=== PATIENT | female | born 1955 | race Caucasian/White ===

== ENCOUNTER → 2017-06-19 | Outpatient (CLI) | payer BC ==
[~2017-06-19] MED LIST: ASPIRIN81 MG PO; AZITHROMYCIN250 MG PO; CEFDINIR300 MG PO; CIPRO500 MG PO; CLARITIN10 MG PO; ENBREL50 MG/1 M1 PO; FENTANYL CITRATE/PF 100MCG/2 ML INJ ONE; GLIMEPIRIDE2 MG PO; HYDROCODONE-CH473 ML PO; IPRAT-ALBUT 0.5-3 ML INH; LEFLUNOMIDE10 MG PO; LISINOPRIL-HCT1 EAC1 PO; MEDROL4 MG/DOSE-; METFORMIN HCL500 MG PO; MIDAZOLAM HCL 2 MG/2 ML VIAL ONE; MIRAPEX1 MG PO; MUCINEX D ER T1 EAC1 PO; PREDNISONE10 MG PO; PROAIR HFA INH8.5 GM PO; SODIUM CHLORIDE 0.9% 250ML 250 ML ONE
[2017-06-19 09:37] LABS: INR 1.1; PROTHROMBIN TIME 13.4 seconds (11.9-14.5)
[2017-06-19 09:38] LABS: PARTIAL THROMBOPLASTIN TIME 25.1 seconds (23.8-35.5)
--- NOTE | 2017-06-19 12:23 | Diagnostic Imaging Report ---
PROCEDURE:CT GUIDED NEEDLE PLACEMENT COMPARISON:CT scan of the chest performed at an outside facility 06/06/2017. Preprocedure diagnosis: Right pleural-chest wall mass Post procedure diagnosis: Right pleural-chest wall cystic lesion Ping Pong Table Assembler: Rommel Fernandez M.D. Sedation/anesthesia: Versed 1 mg intravenous, fentanyl 50 mcg intravenous. The patient's heart rate and pulse oximetry were continuously monitored by the interventional radiology nurse. Blood pressure was monitored at 5 minute intervals. Additional medications: Lidocaine 1% for local anesthesia Estimated blood loss: Less than 5 cc Blood products administered: None Specimens obtained: 70 cc bloody, debris laden fluid Implants/grafts: None Condition at completion of procedure: Stable Disposition: Radiology holding area Complications: None Procedure in detail: Informed consent for the procedure was obtained from the patient and documented in the medical record. The patient was placed in the supine position on the CT couch. A marker grid was placed over the anterior chest and limited CT acquisition was performed. A suitable percutaneous approach the right anterior pleural-chest wall lesion was identified and the overlying skin was prepped and draped in standard sterile fashion. 1% lidocaine was infiltrated into the skin and subcutaneous tissues for local anesthesia. Then under intermittent CT guidance, a 16 gauge needle guide was advanced into the periphery of the lesion. A single fine needle aspiration specimen was obtained. Subsequently, aspiration through the needle guide yielded approximately 70 cc of bloody, debris laden fluid containing thick, gelatinous material. Specimens were submitted to on-site cytopathology personnel and intralesional location was confirmed. Approximately 40 cc of fluid was submitted for cytologic and pathologic analysis. Approximately 30 cc of fluid was placed in a specimen container for microbiologic analysis. At the conclusion of sampling the guide was removed and a sterile dressing was applied. The patient tolerated the procedure well without immediate complication. CONCLUSION: Successful CT-guided aspiration of a complex cystic lesion along the right anterior pleura/chest wall without immediate complication. Specimens were submitted in formalin for pathologic analysis, as well as directly to the microbiology lab for Gram stain, aerobic, anaerobic, and fungal cultures. Dictated by: Rommel Fernandez M.D. on 06/19/2017 at 12:22 Electronically approved by: Rommel Fernandez M.D. on 06/19/2017 at 12:22
== END ==
LOC: CT 08:03
PROVIDERS: ATTEND Internal Medicine Critical Care Medicine
DX: R22.2 Localized swelling, mass and lump, trunk (principal); J45.909 Unspecified asthma, uncomplicated; G47.33 Obstructive sleep apnea (adult) (pediatric); L40.50 Arthropathic psoriasis, unspecified; M06.9 Rheumatoid arthritis, unspecified
CPT/HCPCS: 10022; 36415; 77012; 85049; 85610; 85730; 87071; 87075; 87102; 87205; 87206; 88172; 88173; 88305; J2250; J7050; 88112

== ENCOUNTER → 2017-07-03 | Outpatient (CLI) | payer BC ==
[~2017-07-03] MED LIST changes: -FENTANYL CITRATE/PF 100MCG/2 ML INJ ONE; -MIDAZOLAM HCL 2 MG/2 ML VIAL ONE; -SODIUM CHLORIDE 0.9% 250ML 250 ML ONE
--- NOTE | 2017-07-03 16:35 | Diagnostic Imaging Report ---
Ventilation /Perfusion Lung Study with Quantitation Reason for exam: 62 F with mass associated with right 4th rib anteriorly; pre-operative evaluation Report: Xenon-133 gas 12 mCi was administered via in relation. Dynamic images of the lungs in the posterior projection were obtained through single breath, equilibrium and washout phases. Distribution of tracer activity is slightly irregular throughout the lungs. No ventilatory defects are seen. Washout is diffusely delayed without air trapping. Following intravenous administration of Tc-99m MAA 6.2 mCi, perfusion images of the lungs were obtained in multiple projections. Distribution of tracer appears physiologic throughout the lungs. No segmental perfusion defects of any size are seen. No space occupying mass is seen. The cardiomediastinal silhouette is unremarkable. Quantitation was performed using geometric means of the anterior and posterior perfusion images: Total lung volumes: Left lung 49% and right lung 51%. Differential contributions based on three lung zones per lung: Upper zone of left lung 14%, middle zone of left lung 21%, lower zone of left lung 15%. Upper zone of right lung 15%, middle zone of right lung 24%, lower third of right lung 13%. Impression: 1. Quantitation of lung function is as given above. The quantitation shows a normal differential between the lungs. 2. Scan finding represent a VERY LOW probability of acute pulmonary embolic disease based on the PIOPED II criteria. 3. Scan evidence of obstructive lung disease. Signed by: Dr. Demetra James M.D. on 07/03/2017 4:32 PM
== END ==
LOC: NM 09:27
PROVIDERS: ATTEND Internal Medicine Critical Care Medicine
DX: L40.50 Arthropathic psoriasis, unspecified (principal); G47.33 Obstructive sleep apnea (adult) (pediatric)
CPT/HCPCS: 78598; A9540; A9558

== ENCOUNTER → 2017-07-09 | Outpatient (CLI) | payer BC ==
--- NOTE | 2017-07-10 16:00 | Pulmonary Function Test ---
DATE OF STUDY: July 09, 2017 SPIROMETRY: Spirometry demonstrates evidence of moderate restriction as noted by decreased FEV1 of 1.80 liters or 62% predicted, FVC of 2.37 liters or 63% predicted and normal FEV1 over FVC ratio. Flow volume loop demonstrates narrow effort suggestive of restriction. LUNG VOLUMES: Lung volumes as measured by nitrogen washout method demonstrated decreased total lung capacity of 4.01 liters or 68% predicted, which is consistent with restriction. Effect of obesity is suggested due to decreased ERV of 28% predicted. DIFFUSION: Diffusion capacity was moderately decreased at 13.17 mL per mmHg per minute or 51% predicted. Of note, diffusion effort was slightly decreased which may falsely decrease the measured result of this test. Six minute walk distance. Patient ambulated 450 feet over 6 minutes without stopping. She did not use oxygen but she did use her rolling walker assist device with oxygen saturation maintaining 98% to 97%. SUMMARY: Moderate restriction defect, moderate diffusion defect. This is most often seen in alveolar interstitial lung disease, but clinical correlation is recommended. Decreased 6 minute walk distance of 450 meters was noted. Job#: [id number]
== END ==
LOC: RESP 07:55
PROVIDERS: ATTEND Internal Medicine Critical Care Medicine
DX: J45.909 Unspecified asthma, uncomplicated (principal); R22.2 Localized swelling, mass and lump, trunk; G47.33 Obstructive sleep apnea (adult) (pediatric); L40.50 Arthropathic psoriasis, unspecified; M06.9 Rheumatoid arthritis, unspecified
CPT/HCPCS: 94010; 94727; 94729

== ENCOUNTER 2018-11-18 21:31 | Emergency (ER) | payer BC ==
[~2018-11-18] VITALS: Ht 172.7 cm; Wt 124.7 kg
--- OUTSIDE RECORDS SUMMARY | 2018-11-18 21:34 | XMS REPORT | Encounter Summary ---
Author Organization Unknown Address [address] [place] [address] Phone [phone] Reason for Visit Medical Complaint Instructions 1. Influenza-like symptoms rapid flu (A+B) Tamiflu 75 mg capsule benzonatate 200 mg capsule patient follow up phone call 2. Exposure to Influenzavirus 3. Pain in throat sore throat: care instructions rapid strep group A, throat 4. Essential hypertension high blood pressure: care instructions 5. Hyperlipidemia high cholesterol: care instructions 6. Type 2 diabetes mellitus type 2 diabetes: care instructions 7. Body mass index 40+ - severely obese 8. Noncompliance with medication regimen Discussion Note Pt is in NAD; Verbalizes understanding of all instructions with no questions at this time. Plan of Care Patient Instructions Before using any of these medications check with your PCP for approval: Take fluticasone as needed for congestion. Clear one spray in each nostril twice a day. Take a warm, steamy shower, blow your nose thereafter, and spray in each nostril. Tilt your head up for about 10 seconds and breath through your mouth. Do not sniff or snort the medication in or else the medication will go to your throat and not be absorbed appropriately. Take Benzonatate for cough as directed. 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 Alternate with Ibuprofen and acetaminophen every 4hrs as needed for sore throat/pain/fever/headache. Proper hydration and rest. Return to work/school if free of fever for 24-hrs. Do not share any utensils/cups, no kissing, recommend hand washing after coughing/sneezing/blowing nose and cover face when you do so. Take medications as prescribed. Return to clinic or follow up with your PCP within 2-3 days if symptoms worsen as discussed. Recommend monitor BP and blood sugars at home and document, bring BP and blood sugar log to PCP for review. Recommend follow a low sodium/fat and carb diet and exercise 30-45 mins/d 3-4 days a week. In case of an emergency call 911 or go to nearest ER. Reminders Provider Appointments None recorded. Lab Rapid Flu (A+B) 06/01/2017 [facility] Rapid Strep Group a, Throat 06/01/2017 [facility] Referral None recorded. Procedures None recorded. Surgeries None recorded. Imaging None recorded. Medications Name Start Date amlodipine 10 mg tablet TAKE 1 TABLET BY MOUTH EVERY DAY benzonatate 200 mg capsule Take 1 capsule 3 times a day by oral route as needed. Cosentyx Pen 150 mg/mL subcutaneous levalbuterol 0.63 mg/3 mL solution for nebulization Inhale 3 mL every 8 hours by nebulization route. lovastatin 20 mg tablet metformin 500 mg tablet metoprolol succinate ER 100 mg tablet,extended release 24 hr TAKE 1 TABLET BY MOUTH ONCE A DAY olmesartan 40 mg-hydrochlorothiazide 12.5 mg tablet pramipexole 1 mg tablet TAKE 1 TABLET BY MOUTH 3 TIMES A DAY Symbicort 160 mcg-4.5 mcg/actuation HFA aerosol inhaler TAKE 2 PUFFS BY MOUTH TWICE A DAY Tamiflu 75 mg capsule Take 1 capsule twice a day by oral route as directed for 5 days. Medications Administered None recorded. Vitals Height Weight BMI Blood Pressure 5 ft 8 in 288 lbs 43.8 kg/m2 132/90 mm[Hg] Lab Results Date Name Specimen Result Interpretation Description Value Range Status Address Rapid Strep Group a, Throat Result negative [facility]: [address] [place] [address] Swab Location Left and Right tonsillar pillars [facility]: [address] [place] [address] Rapid Flu (A+B) Influenza a negative [facility]: [address] [place] [address] Influenza B negative [facility]: [address] [place] [address] Allergies Code Code System Name Reaction Severity Status Onset NKDA Problems None recorded. Procedures Date Name Performed by Hysterectomy Information not available Vaccine List Vaccine Type influenza, unspecified formulation 01/22/2016 Social History Smoking Status Never Smoker Past Encounters 06/01/2017 Influenza-like Symptoms; Exposure to Influenzavirus; Pain in Throat; Essential Hypertension; Hyperlipidemia; Type 2 Diabetes Mellitus; Body Mass Index 40+ - Severely Obese; Noncompliance with Medication Regimen Dotty Vogt, ANA-C: [address] [facility], [place] [address], Ph. History of Present Illness Enivgsv-Ekahr-Tjf Reported By: Patient HPI: Quality: symptoms worse during the day. Duration: 1 days. Severity: subjective temperature. 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 Pt reports not using symbicort BID as instructed. She denies SOB, chest pain or wheezing. Associated Symptoms: no headache, no muscle aches, no rash, no lethargy, fever/chills, cough, nasal passage blockage (stuffiness), nasal discharge; sore throat and chest congestion. Modifying Factors ; symbicort inhaler and levalbuterol neb with mild relief Review of Systems:ROS as noted in the HPI Review of Systems Basic Reported By: Patient Physical Exam Adult Basic, Adult Female Complete Reported By: Patient Constitutional: General Appearance: obese. Level of Distress: NAD. Ambulation: ambulation with walker Psychiatric: Mental Status: active and alert. Orientation: to time, to place, to person Jgb-Ryzv-Hwvzp-Throat: Ears: no lesions on external ear, no outer ear tenderness, EACs clear, TMs clear. Hearing: no hearing loss. Nose: no lesions on external nose, nares patent, no septal deviation, nasal passages clear, no sinus tenderness, nasal discharge--rhinorrhea. Lips, Teeth, and Gums: no mouth or lip ulcers, no bleeding gums, normal dentition. Oropharynx: moist mucous membranes, no erythema, no exudates, tonsils not enlarged Neck: Lymph Nodes: no cervical LAD Lungs: Respiratory effort: no dyspnea, no tachypnea, no use of accessory muscles, no intercostal retractions. Auscultation: breath sounds normal Cardiovascular: Heart Auscultation: RRR, no murmurs Neurologic: Gait and Station: normal gait, normal station
--- OUTSIDE RECORDS SUMMARY | 2018-11-18 21:34 | XMS REPORT | Clinical Summary ---
Author Author RICHELLE [facility] Address Unknown Phone Unavailable Care Team Providers Care Sprayer Operator Name Role Phone Pcp, No PCP Unavailable Allergies No Known Allergies Medications End Date Status Medication Sig Dispensed Refills Start Date Active metFORMIN (GLUCOPHAGE) Take 1,000 mg 0 1000 MG tablet by mouth 2 (two) times daily with breakfast and dinner. Active metoprolol (TOPROL-XL) Take 200 mg 0 200 MG 24 hr tablet by mouth daily. Active olmesartan (BENICAR) 40 Take 40 mg by 0 MG tablet mouth daily. Active lovastatin (MEVACOR) 20 Take 20 mg by 0 MG tablet mouth nightly. Active dapagliflozin (FARXIGA) 5 Take 5 mg by 0 mg tablet mouth daily. Active apremilast (OTEZLA) 30 mg Take 30 mg by 0 Tab mouth 2 (two) times daily. Active budesonide-formoterol Inhale 2 0 (SYMBICORT) 160-4.5 puffs by mcg/actuation inhaler mouth via inhaler 2 (two) times daily. Active pramipexole (MIRAPEX) 1 Take 1 mg by 0 MG tablet mouth 3 (three) times daily. Active ondansetron (ZOFRAN) 2 Inject 2 mLs 0 mg/mL Soln (4 mg total) 8 intravenously every 8 (eight) hours as needed. 10/13/2018 nystatin (MYCOSTATIN) Apply 15 g 0 100,000 unit/gram powder topically 2 8 (two) times daily. 10/13/2018 gabapentin (NEURONTIN) Take 1 0 100 MG capsule capsule (100 8 mg total) by mouth 3 (three) times daily. 10/13/2018 senna-docusate (SENOKOT Take 2 0 S) 8.6-50 mg per tablet tablets by 8 mouth nightly. 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 Physical deconditioning 10/08/2017 History of COPD 10/08/2017 History of sleep apnea 10/08/2017 Thrombocytopenia 10/08/2017 Acute blood loss anemia 10/06/2017 Acute postoperative pain 10/06/2017 Obesity (BMI 30-39.9) 10/06/2017 Type 2 diabetes mellitus with hyperglycemia, without long-term current use 10/06/2017 of insulin Chest wall mass 10/05/2017 Respiratory insufficiency Hypertension, unspecified type Social History Date Tobacco Use Types Packs/Day Years Used Never Smoker Smokeless Tobacco: Never Used Alcohol Use Drinks/Week oz/Week Comments No Sex Assigned at Date Recorded Not on file Industry Job Start Date Occupation Not on file Not on file Not on file Travel End Travel History Travel Start No recent travel history available. Last Filed Vital Signs Not on file Plan of Treatment Not on file Procedures Comments Procedure Name Priority Date/Time Associated Diagnosis INTRAOPERATIVE PATH 08/02/2018 REPORT - SCAN 10:00 AM CDT INTRAOPERATIVE PATH 08/02/2018 REPORT - SCAN 10:00 AM CDT after 11/17/2017 Results * INTRAOPERATIVE PATH REPORT - SCAN (08/02/2018 10:00 AM CDT) Only the most recent of 2 results within the time period is included. Narrative Performed At after 11/17/2017 Insurance Payer Benefit Subscriber ID Type Phone Address Plan / Group BLUE CROSS/BLUE SHIELD BCBS OS xxxxxxxxxxxx PPO [phone] [address] POS/PPO/[place] [address] O Advance Directives For more information, please contact: [facility] [address] [place] [address] Date Inactivated Comments Code Status Date Activated 10/13/2017 2:14 PM Full Code 10/05/2017 12:37 PM This code status was determined by: Patient
--- OUTSIDE RECORDS SUMMARY | 2018-11-18 21:34 | XMS REPORT | Continuity of Care Document ---
Author Author [employer] Address Unknown Phone Unavailable Care Team Providers Care Sales Marketing Manager Name Role Phone [facility] Unavailable Unavailable Problems Problem Status Onset Date Classification Date Reported Comments Source Influenza-like symptoms 06/01/2017 Diagnosis 06/01/2017 [facility] Exposure to Influenzavirus 06/01/2017 Diagnosis 06/01/2017 [facility] Pain in throat 06/01/2017 Diagnosis 06/01/2017 [facility] Essential hypertension 06/01/2017 Diagnosis 06/01/2017 [facility] Hyperlipidemia 06/01/2017 Diagnosis 06/01/2017 [facility] Type 2 diabetes mellitus 06/01/2017 Diagnosis 06/01/2017 [facility] Body mass index 40+ - severely obese 06/01/2017 Diagnosis 06/01/2017 [facility] Noncompliance with medication regimen 06/01/2017 Diagnosis 06/01/2017 [facility] Acute exacerbation of chronic obstructive airways disease 10/31/2016 Diagnosis 10/31/2016 [facility] Sore throat symptom 10/31/2016 Diagnosis 10/31/2016 [facility] Medications Medication Details Route Status Patient Instructions Ordering Provider Order Date Source Amlodipine 10 MG Oral Tablet amlodipine 10 mg tablet TAKE 1 TABLET BY MOUTH EVERY DAY Active [facility] benzonatate 200 MG Oral Capsule benzonatate 200 mg capsule Take 1 capsule 3 times a day by oral route as needed. Active [facility] doxycycline hyclate 100 MG Oral Capsule doxycycline hyclate 100 mg capsule Take 1 capsule twice a day by oral route as directed for 10 days. Active [facility] Fluticasone propionate 0.05 MG/ACTUAT Metered Dose Nasal [place] fluticasone 50 mcg/actuation nasal spray,suspension [place] 1 spray every day by intranasal route as needed for 14 days. Active [facility] Ketoprofen 75 MG Oral Capsule ketoprofen 75 mg capsule TAKE ONE CAPSULE BY MOUTH 3 TIMES A DAY NEEDED Active [facility] Lidocaine Hydrochloride 20 MG/ML Mucous Membrane Topical Solution Lidocaine Viscous 2 % mucosal solution Take 15 mL every 3 hours by oral route as needed. Active [facility] Lovastatin 20 MG Oral Tablet lovastatin 20 mg tablet Active [facility] Metformin hydrochloride 500 MG Oral Tablet metformin 500 mg tablet Active [facility] 24 HR metoprolol succinate 100 MG Extended Release Oral Tablet metoprolol succinate ER 100 mg tablet,extended release 24 hr TAKE 1 TABLET BY MOUTH ONCE A DAY Active [facility] Olmesartan medoxomil 40 MG Oral Tablet olmesartan 40 mg tablet TAKE 1 TABLET BY MOUTH EVERY DAY Active [facility] 1 ML abatacept 125 MG/ML Prefilled Syringe [Orencia] Orencia 125 mg/mL subcutaneous syringe Active [facility] Pramipexole dihydrochloride 1 MG Oral Tablet pramipexole 1 mg tablet TAKE 1 TABLET BY MOUTH 3 TIMES A DAY Active [facility] Sulfasalazine 500 MG Oral Tablet sulfasalazine 500 mg tablet Active [facility] Budesonide 0.16 MG/ACTUAT / formoterol fumarate 0.0045 MG/ACTUAT Metered Dose Inhaler Symbicort 160 mcg-4.5 mcg/actuation HFA aerosol inhaler TAKE 2 PUFFS BY MOUTH TWICE A DAY Active [facility] 1 ML secukinumab 150 MG/ML Auto-Injector [Cosentyx] Cosentyx Pen 150 mg/mL subcutaneous Active [facility] Levalbuterol 0.21 MG/ML Inhalant Solution levalbuterol 0.63 mg/3 mL solution for nebulization Inhale 3 mL every 8 hours by nebulization route. Active [facility] Hydrochlorothiazide 12.5 MG / Olmesartan medoxomil 40 MG Oral Tablet olmesartan 40 mg-hydrochlorothiazide 12.5 mg tablet Active [facility] Oseltamivir 75 MG Oral Capsule [Tamiflu] Tamiflu 75 mg capsule Take 1 capsule twice a day by oral route as directed for 5 days. Active [facility] Allergies, Adverse Reactions, Alerts No Known Medication Allergies Immunizations Immunization Date Given Site Status Last Updated Comments Source influenza, unspecified formulation 01/22/2016 completed [facility] Results Order Name Results Value Reference Range Date Interpretation Comments Source RESULT negative 06/01/2017 [facility] SWAB LOCATION Left and Right tonsillar pillars 06/01/2017 [facility] Influenza A negative 06/01/2017 [facility] Influenza B negative 06/01/2017 [facility] RESULT negative 10/31/2016 [facility] SWAB LOCATION Left and Right tonsillar pillars 10/31/2016 [facility] Pathology Reports No Data Provided for This Section Diagnostic Reports No Data Provided for This Section Consultation Notes No Data Provided for This Section Discharge Summaries No Data Provided for This Section History and Physicals No Data Provided for This Section Vital Signs Vital Sign Value Date Comments Source Diastolic (mm Hg) 90 06/01/2017 [facility] Height 68 06/01/2017 [facility] Systolic (mm Hg) 132 06/01/2017 [facility] Weight 288 06/01/2017 [facility] Diastolic (mm Hg) 90 10/31/2016 [facility] Height 68 10/31/2016 [facility] Systolic (mm Hg) 136 10/31/2016 [facility] Weight 290 10/31/2016 [facility] Encounters Location Location Details Encounter Type Encounter Number Reason For Visit Attending Provider ADM Date DC Date Status Source [place] - [facility] - [id number] ANA Meyer-C: [address] [place] [address], Ph. [id number] Dotty Torie 10/31/2016 [facility] [place] - [facility] - [id number] MaradiagaP-C: [address] [place] [address], Ph. [id number] Dottybaljit Vogt 06/01/2017 [facility] Procedures Procedure Code Date Perfomer Comments Source Hysterectomy [facility] Assessment and Plan No Data Provided for This Section Plan of Care No Data Provided for This Section Social History Social History Date Source Smoking Status Never Smoker 10/31/2016 [facility] Family History No Data Provided for This Section Advance Directives No Data Provided for This Section Functional Status No Data Provided for This Section
--- OUTSIDE RECORDS SUMMARY | 2018-11-18 21:34 | XMS REPORT | Encounter Summary ---
Author Organization Unknown Address [address] [place] [id number] Phone [phone] Reason for Visit Medical Complaint Instructions 1. Acute exacerbation of chronic obstructive airways disease fluticasone 50 mcg/actuation nasal spray,suspension benzonatate 200 mg capsule doxycycline hyclate 100 mg capsule 2. Sore throat symptom sore throat: care instructions Lidocaine Viscous 2 % mucosal solution rapid strep group A, throat Discussion Note Pt is in NAD; Verbalizes understanding of all instructions with no questions at this time. Plan of Care Patient Instructions start fluticasone as needed for nasal congestion and runny nose. [place] one spray in each nostril twice a day. Take a warm, steamy shower, blow your nose thereafter, and spray in each nostril. Tilt your head up for about 10 seconds and breath through your mouth. Do not sniff or snort the medication in or else the medication will go to your throat and not be absorbed appropriately. Continue ProAir inhaler 2 puffs every 4-6 hrs as needed for shortness of breath/wheezing. Continue Symbicort as directed by your backbreaker. Start Benzonatate for cough as directed. Take antibiotics as directed. Gargle and spit viscous lidocaine as needed for sore throat as directed. Alternate with Ibuprofen and acetaminophen every 4hrs as needed for pain/fever/headache. Proper hydration and rest. Do not share any utensils/cups, no kissing, recommend hand washing after coughing/sneezing/blowing nose and cover face when you do so. Take medications as prescribed and follow up with a PCP and backbreaker within 2-3 if symptoms worsen as discussed.In case of emergency: worsening chest tightness, chest pain, worsening shortness of breath or difficulty breathing call 911 or go to nearest ER. Reminders Provider Appointments None recorded. Lab Rapid Strep Group a, Throat 10/31/2016 [facility] Referral None recorded. Procedures None recorded. Surgeries None recorded. Imaging None recorded. Medications Name Start Date amlodipine 10 mg tablet TAKE 1 TABLET BY MOUTH EVERY DAY benzonatate 200 mg capsule Take 1 capsule 3 times a day by oral route as needed for 7 days. doxycycline hyclate 100 mg capsule Take 1 capsule twice a day by oral route as directed for 10 days. fluticasone 50 mcg/actuation nasal spray,suspension [place] 1 spray every day by intranasal route as needed for 14 days. ketoprofen 75 mg capsule TAKE ONE CAPSULE BY MOUTH 3 TIMES A DAY NEEDED Lidocaine Viscous 2 % mucosal solution Take 15 mL every 3 hours by oral route as needed. lovastatin 20 mg tablet metformin 500 mg tablet metoprolol succinate ER 100 mg tablet,extended release 24 hr TAKE 1 TABLET BY MOUTH EVERY DAY olmesartan 40 mg tablet TAKE 1 TABLET BY MOUTH EVERY DAY Orencia 125 mg/mL subcutaneous syringe pramipexole 1 mg tablet TAKE 1 TABLET BY MOUTH 3 TIMES A DAY sulfasalazine 500 mg tablet Symbicort 160 mcg-4.5 mcg/actuation HFA aerosol inhaler TAKE 2 PUFFS BY MOUTH TWICE A DAY Medications Administered None recorded. Vitals Height Weight BMI Blood Pressure 5 ft 8 in 290 lbs 44.1 kg/m2 136/90 mm[Hg] Lab Results Date Name Specimen Result Interpretation Description Value Range Status Address Rapid Strep Group a, Throat Result negative [facility]: [address] [place] [address] Swab Location Left and Right tonsillar pillars [facility]: [address] [place] [address] Allergies Code Code System Name Reaction Severity Onset NKDA Problems None recorded. Procedures Date Name Performed by Hysterectomy Information not available Vaccine List Vaccine Type influenza, unspecified formulation 01/22/2016 Social History Smoking Status Never Smoker Past Encounters 10/31/2016 Acute Exacerbation of Chronic Obstructive Airways Disease; Sore Throat Symptom [facility] [employer]: [address] [place] [address], Ph. History of Present Illness Cough Reported By: Patient HPI: Location: chest. Quality: productive cough, sore throat, colored phlegm, congested. Duration: 1 days. Severity: moderate. Onset/Timing: sudden. Context: no sick contacts, no foreign travel, non-smoker, COPD; follows with pulmonary medicine. Modifying factors: ; symbicort and proair inhalers. Associated Symptoms: no wheezing, no sweats, no significant weight gain, no significant weight loss, no morning cough, no sore throat, no vomiting, no diarrhea, no rash, no nausea, no fever/chills, no muscle aches, no headache, yellow-green, thick sputum, shortness of breath Review of Systems:ROS as noted in the HPI Review of Systems Basic Reported By: Patient Physical Exam Adult Basic, Adult Female Complete Reported By: Patient Constitutional: General Appearance: healthy-appearing, well-nourished, well-developed. Level of Distress: NAD. Ambulation: ambulating normally Psychiatric: Mental Status: active and alert Eyes: Lids and Conjunctivae: non-injected, no discharge, no pallor Hry-Exfn-Crunv-Throat: Ears: no lesions on external ear, no outer ear tenderness, EACs clear, TMs clear. Nose: no lesions on external nose, nares patent, no septal deviation, nasal passages clear, no sinus tenderness, post nasal drip. Lips, Teeth, and Gums: no mouth or lip ulcers, no bleeding gums, normal dentition. Oropharynx: moist mucous membranes, no erythema, no exudates, tonsils not enlarged Neck: Lymph Nodes: no cervical LAD Lungs: Respiratory effort: no dyspnea, no tachypnea, no use of accessory muscles, no intercostal retractions. Auscultation: expiratory wheezing, wet rales/crackles Cardiovascular: Heart Auscultation: RRR, no murmurs Neurologic: Gait and Station: normal gait, normal station
--- OUTSIDE RECORDS SUMMARY | 2018-11-18 21:35 | XMS REPORT ---
Author Author [facility] Address Unknown Phone Unavailable Care Team Providers Care Car Shakeout Operator Name Role Phone ALYX GREY Unavailable Unavailable Georgina LAM Unavailable Unavailable Problems This patient has no known problems. Allergies, Adverse Reactions, Alerts This patient has no known allergies or adverse reactions. Medications This patient has no known medications. Results Test Description Test Time Test Comments Text Results Atomic Results Result Comments TISSUE EXAM 2017-12-11 16:37:00 Surgical Pathology Report Case: [id number] Authorizing Provider: Kathrin Grey, Collected: 10/05/2017 1821 Ordering Location: [facility] Received: 10/08/2017 0757 PERIOPERATIVE SERVICES Pathologist: Gaby Griffin MD Specimens: A) - Rib, Right, sixth rib B) - Mass, right chest wall mass C) - Mass, RIGHT LUNG MASS D) - Rib, Right, RIGHT THIRD RIB BONE THE AMENDMENT WAS ISSUED TO CORRECT THE ANATOMIC LOCATION OF TUMOR IN PART C, AFTER QA REVIEW. THE ORIGINAL DIAGNOSIS REMAINS UNCHANGED. A. RIGHT RIB, 6TH RIB, EXCISION: - BONE FRAGMENTS, NEGATIVE FOR MALIGNANCYB. RIGHT CHEST WALL MASS, EXCISION: - MALIGNANT NEOPLASM, CONSISTENT WITH CHONDROSARCOMA, GRADE 2-3 TUMOR SIZE: 5.2 X 3.5 X 2.5 CM TUMOR LOCATION: RIGHT 3rd RIB ( PER CT SCAN REPORT) TUMOR GRADE: MODERATE DIFFERENTIATED, GRADE 2-3 LYMPHOVASCULAR INVASION: NOT PRESENT NO LUNG PRANCHYMA INVOVEMENT - PATHOLOGIC STAGE CLASSIFICATION (pTNM, AJCC 8th Edition): [id number] C. MASS, RIGHT CHEST WALL M ASS, EXCISION: - CHRONDROSARCOMA, GRADE 2-3 - SURGICAL MARGINS: NEGATIVE FOR MALIGANCY - PATHOLOGIC STAGE CLASSIFICATION (pTNM, AJCC 8th Edition): [id number]. RIGHT THIRD RIB (PIECES), EXCISION: - FRAGMENTS OF BONE, NEGATIVE FOR MALIGNANCYCC/pl Signing Pathologist Direct Phone Line: [phone] electronically signed by Gaby Griffin MD on 12/11/2017 at 4:37 PM The tumor shows markedly increased cellularity and crowding of the chondroncytes with moderate cytological atypia characterized by increased nuclear size and distinct nucleoli. Tumor necrosis and ischemic change is also seen. 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 The case was reviewed by Dr. Thomas Hi at [facility], Department of Pathology, who concurred with above diagnosis. BONE: Resection (Bone Res - All Specimens)CLINICAL Radiographic Findings: Not available Preresection Treatment: No known preresection therapy SPECIMEN Procedure: Segmental / wide resection TUMOR Tumor Site: Appendicular skeleton Bone: Right 3rd Rib Histologic Type: : Chondrosarcoma grade II Histologic Grade: G2: Moderately differentiated, high grade Tumor Size: Greatest dimension in Centimeters (cm): 5.2 Centimeters (cm) Additional Dimension in Centimeters (cm): 3.5 Centimeters (cm) Additional Dimension in Centimeters (cm): 2.5 Centimeters (cm) Tumor Extent: Tumor Location and Extent: Cannot be determined Accessory Findings: Mitotic Rate: less than1/10 PHF mitoses per 10 High Power [place] (HPF) Necrosis (macroscopic or microscopic): Present Extent (%): 10 % Lymphovascular Invasion: Not identified Treatment Effect: No known presurgical therapy MARGINS Margins: Uninvolved by sarcoma Distance of Sarcoma from Closest Margin in Centimeters (cm): 0.5 Centimeters (cm) Margin: Superfical and inferior margins LYMPH NODES Regional Lymph Nodes: No lymph nodes submitted or found PATHOLOGIC STAGE CLASSIFICATION (pTNM, AJCC 8th Edition) : Primary Tumor (pT): pT1 Regional Lymph Nodes (pN): pNX SPECIAL STUDIES Immunohistochemistry: Not performed Cytogenetics: Not performed Molecular Pathology: Not performed 68406 X4, 41759 X2, 40927 x3,39650 x3; 60225 x1A. Right rib. B. Right chest wall mass. C. Right chest mass. D. Right third rib boneThe specimen is received in four parts labeled with the patient's information, which responds to the requisition slips with the same information.Part A. Received in formalin labeled "right rib" is a 2.6 x 1.6 x 0.9 cm roman-pink piece of bone. The specimen is submitted entirely in cassettes A1 through A3 after decalcification. MA/plPart B. Received fresh for intraoperative consultation labeled "right chest wall mass" is a 5.2 x 3.5 x 2.5 cm, round, roman-pink to red, smooth to irregular, soft tissue mass. The resection surface is roman-pink to red and is irregular.Ink code: Black-smooth external surface, blue edge at resection surface.The specimen is serially sectioned to reveal roman-pink to red, solid, irregular cut surfaces. The mass is serially sectioned into 12 slices. Photographs were taken. The specimen is submitted entirely as follows: FSB1, contact center representative from the mass for frozen section examination; B2, slice 1 entirely; B3, B4, slice 2 bisected; B5, B6, slice 3 bisected; B7, slice 4 entirely; B8, slice 5 entirely; B9, slice 6 entirely; B10, B11, slice 7 bisected; B12, B13, slice 8 bisected; B14, B15, slice 9 bisected; B16, slice 10 entirely; B17, B18, slice 11 bisected; B19, slice 12 entirely.Part C. Received fresh for intraoperative consultation labeled "right chest wall mass" is a 6.5 x 5 x 5 cm two ribs that measure 1.5 cm in thickness. On the deep surface of the rib bone, there is a 4.1 x 3.0 cm, roman-brown, irregular tumor bed area. The tumor bed area measures 1.2 cm from the lateral resection margin, 1.2 cm from the medial resection margin, 0.5 cm from the inferior resection margin, 1.7 cm from the superior resection margin and 0.5 cm from the superficial resection margin. Photographs were taken.Ink code: Blue superior margin, orange medial margin, green inferior margin, red lateral margin, black anterior or superficial margin.Section code: FSC1, inferior margin; FSC2, superior margin; FSC3, lateral margin; FSC4, superficial margin; C5-C7, medial bone margin after decalcification. MA/ewC5 through C7, medial bone resection margin; C8 through 15, contact center representative sections of rib bones at tumor bed area; C16 through C18, medial bone margin en face.Part D. Received in formalin labeled "right third rib" are two roman-pink irregular pieces of bone measuring 2.0 x 1.0 x 0.7 cm and 3.0 x 2.0 x 0.9 cm. The specimen is submitted entirely in cassettes D1 through D3. MA/plFSB1: RIGHT CHEST WALL MASS: - LOW GRADE CHONDROID NEOPLASMRIGHT CHEST WALL MARGINS: FSC1 - INFERIOR MARGIN - NEGATIVE FOR TUMOR FSC2 - SUPERIOR MARGIN - NEGATIVE FOR TUMOR FSC3 - LATERA MARGIN - NEGATIVE FOR TUMOR FSC4 - SUPERFICIAL MARGIN - NEGATIVE FOR TUMORNote: Fatty tissue at margin, difficult to cut. Medial margin bone did not freeze. Reported by Dr. Kinsey. A and D: Performed.B and C: The right chest wall mass shows a circumscribed mass that has lobulated appearance. There is markedly increased cellularity and crowding of the chondroncytes with moderate cytological atypia characterized by increased nuclear size and distinct nucleoli. Tumor necrosis and ischemic change is also seen. The finding is consistent with chondrosarcoma, grade 2-3. Focal area resembling enchondroma is also present. AFB CULTURE + SMEAR 2017-11-25 02:56:00 CULTURE (BEAKER) (test ddxl=6190) No acid-fast bacilli isolated in 42 days AFB SMEAR (BEAKER) (test syvg=072) No acid fast bacilli seen FUNGUS CULTURE + [id number] 10:11:00* Test Item Value Reference Range Comments CULTURE (BEAKER) (test itby=2525) No fungus isolated in 28 days FUNGUS SMEAR (BEAKER) (test xqvp=4778) No fungi seen ANAEROBIC [id number] 04:56:00* Test Item Value Reference Range Comments CULTURE (BEAKER) (test wpdp=0855) No anaerobes isolated POCT-GLUCOSE [id number] 08:12:00* Test Item Value Reference Range Comments POC-GLUCOSE METER (BEAKER) (test jxbt=0332) 213 mg/dL 70-110 TESTED AT [facility] [address] [address] POCT-GLUCOSE [id number] 23:58:00* Test Item Value Reference Range Comments POC-GLUCOSE METER (BEAKER) (test ifxo=8419) 248 mg/dL 70-110 TESTED AT [facility] [address] [facility] [address] POCT-GLUCOSE [id number] 18:35:00* Test Item Value Reference Range Comments POC-GLUCOSE METER (BEAKER) (test rrgn=9452) 249 mg/dL 70-110 TESTED AT [facility] [address] [address] POCT-GLUCOSE [id number] 13:49:00* Test Item Value Reference Range Comments POC-GLUCOSE METER (BEAKER) (test bsrj=0987) 268 mg/dL 70-110 TESTED AT [facility] [address] [address] [address] POCT-GLUCOSE [id number] 08:07:00* Test Item Value Reference Range Comments POC-GLUCOSE METER (BEAKER) (test pteg=9460) 198 mg/dL 70-110 TESTED AT [place] [id number] [facility] [address] BASIC METABOLIC [id number] 05:57:00* Test Item Value Reference Range Comments SODIUM (BEAKER) (test quwi=905) 140 meq/L 136-145 POTASSIUM (BEAKER) (test pkmk=650) 3.4 meq/L 3.5-5.1 CHLORIDE (BEAKER) (test gaxw=670) 101 meq/L 98-107 CO2 (BEAKER) (test ojdb=869) 31 meq/L 22-29 BLOOD UREA NITROGEN (BEAKER) (test lapg=212) 12 mg/dL 7-21 CREATININE (BEAKER) (test uqaa=680) 0.59 mg/dL 0.57-1.25 GLUCOSE RANDOM (BEAKER) (test mdhk=851) 210 mg/dL 70-105 CALCIUM (BEAKER) (test rnwt=944) 9.0 mg/dL 8.4-10.2 EGFR (BEAKER) (test briq=7170) 103 mL/min/1.73 sq m ESTIMATED GFR IS NOT ACCURATE CREATININE CLEARANCE IN PREDICTING GLOMERULAR FILTRATION RATE. ESTIMATED GFR IS NOT APPLICABLE FOR DIALYSIS PATIENTS. CBC W/PLT COUNT & AUTO [id number] 05:23:00* Test Item Value Reference Range Comments WHITE BLOOD CELL COUNT (BEAKER) (test xuiw=313) 6.3 K/ L 3.5-10.5 RED BLOOD CELL COUNT (BEAKER) (test gyhp=025) 3.89 M/ L 3.93-5.22 HEMOGLOBIN (BEAKER) (test sspp=987) 11.1 GM/DL 11.2-15.7 HEMATOCRIT (BEAKER) (test fsum=001) 35.4 % 34.1-44.9 MEAN CORPUSCULAR VOLUME (BEAKER) (test ttlf=602) 91.0 fL 79.4-94.8 MEAN CORPUSCULAR HEMOGLOBIN (BEAKER) (test fqge=665) 28.5 pg 25.6-32.2 MEAN CORPUSCULAR HEMOGLOBIN CONC (BEAKER) (test mbng=852) 31.4 GM/DL 32.2-35.5 RED CELL DISTRIBUTION WIDTH (BEAKER) (test scdc=956) 14.0 % 11.7-14.4 PLATELET COUNT (BEAKER) (test zmlk=512) 216 K/CU MM 150-450 MEAN PLATELET VOLUME (BEAKER) (test afpv=212) 10.9 fL 9.4-12.3 NUCLEATED RED BLOOD CELLS (BEAKER) (test ezte=378) 0 /100 WBC 0-0 NEUTROPHILS RELATIVE PERCENT (BEAKER) (test leju=725) 60 % LYMPHOCYTES RELATIVE PERCENT (BEAKER) (test hipl=626) 25 % MONOCYTES RELATIVE PERCENT (BEAKER) (test xwel=347) 8 % EOSINOPHILS RELATIVE PERCENT (BEAKER) (test khbc=599) 5 % BASOPHILS RELATIVE PERCENT (BEAKER) (test hwhl=797) 1 % NEUTROPHILS ABSOLUTE COUNT (BEAKER) (test kzbg=819) 3.76 K/ L 1.56-6.13 LYMPHOCYTES ABSOLUTE COUNT (BEAKER) (test bgzy=022) 1.60 K/ L 1.18-3.74 MONOCYTES ABSOLUTE COUNT (BEAKER) (test xrwq=003) 0.48 K/ L 0.24-0.36 EOSINOPHILS ABSOLUTE COUNT (BEAKER) (test gsyu=072) 0.29 K/ L 0.04-0.36 BASOPHILS ABSOLUTE COUNT (BEAKER) (test vojw=438) 0.04 K/ L 0.01-0.08 IMMATURE GRANULOCYTES-RELATIVE PERCENT (BEAKER) (test acps=7670) 2 % 0-1 POCT-GLUCOSE [id number] 22:22:00* Test Item Value Reference Range Comments POC-GLUCOSE METER (BEAKER) (test ieab=7699) 256 mg/dL 70-110 TESTED AT [facility] [address] [address] POCT-GLUCOSE [id number] 17:11:00* Test Item Value Reference Range Comments POC-GLUCOSE METER (BEAKER) (test ypwd=0571) 284 mg/dL 70-110 TESTED AT [facility] [address] [address] POCT-GLUCOSE [id number] 12:39:00* Test Item Value Reference Range Comments POC-GLUCOSE METER (BEAKER) (test auvp=9786) 260 mg/dL 70-110 TESTED AT [facility] [address] [address] HEMOGLOBIN [id number] 09:10:00* Test Item Value Reference Range Comments HEMOGLOBIN A1C (BEAKER) (test tfux=703) 7.3 % 4.3-6.1 POCT-GLUCOSE [id number] 07:50:00* Test Item Value Reference Range Comments POC-GLUCOSE METER (BEAKER) (test vbbl=9402) 206 mg/dL 70-110 TESTED AT [facility] [address] [address] [id number] 05:50:00* Test Item Value Reference Range Comments MAGNESIUM (BEAKER) (test mudt=192) 1.8 mg/dL 1.6-2.6 BASIC METABOLIC [id number] 05:50:00* Test Item Value Reference Range Comments SODIUM (BEAKER) (test smog=443) 138 meq/L 136-145 POTASSIUM (BEAKER) (test dnkl=808) 3.4 meq/L 3.5-5.1 CHLORIDE (BEAKER) (test ugpi=211) 101 meq/L 98-107 CO2 (BEAKER) (test zpwz=994) 29 meq/L 22-29 BLOOD UREA NITROGEN (BEAKER) (test rkeq=068) 8 mg/dL 7-21 CREATININE (BEAKER) (test ptbd=288) 0.53 mg/dL 0.57-1.25 GLUCOSE RANDOM (BEAKER) (test mcuh=788) 180 mg/dL 70-105 CALCIUM (BEAKER) (test phvi=750) 8.8 mg/dL 8.4-10.2 EGFR (BEAKER) (test mogg=6867) 117 mL/min/1.73 sq m ESTIMATED GFR IS NOT ACCURATE CREATININE CLEARANCE IN PREDICTING GLOMERULAR FILTRATION RATE. ESTIMATED GFR IS NOT APPLICABLE FOR DIALYSIS PATIENTS. CBC W/PLT COUNT & AUTO [id number] 05:20:00* Test Item Value Reference Range Comments WHITE BLOOD CELL COUNT (BEAKER) (test wajz=266) 5.5 K/ L 3.5-10.5 RED BLOOD CELL COUNT (BEAKER) (test fhzi=930) 3.67 M/ L 3.93-5.22 HEMOGLOBIN (BEAKER) (test ouls=481) 10.5 GM/DL 11.2-15.7 HEMATOCRIT (BEAKER) (test oogv=015) 32.8 % 34.1-44.9 MEAN CORPUSCULAR VOLUME (BEAKER) (test aqfy=193) 89.4 fL 79.4-94.8 MEAN CORPUSCULAR HEMOGLOBIN (BEAKER) (test nkjn=493) 28.6 pg 25.6-32.2 MEAN CORPUSCULAR HEMOGLOBIN CONC (BEAKER) (test ygff=756) 32.0 GM/DL 32.2-35.5 RED CELL DISTRIBUTION WIDTH (BEAKER) (test kedf=649) 13.6 % 11.7-14.4 PLATELET COUNT (BEAKER) (test ynfg=951) 190 K/CU MM 150-450 MEAN PLATELET VOLUME (BEAKER) (test lcnr=162) 11.2 fL 9.4-12.3 NUCLEATED RED BLOOD CELLS (BEAKER) (test nrsa=098) 0 /100 WBC 0-0 NEUTROPHILS RELATIVE PERCENT (BEAKER) (test gorh=724) 63 % LYMPHOCYTES RELATIVE PERCENT (BEAKER) (test xvsa=661) 21 % MONOCYTES RELATIVE PERCENT (BEAKER) (test jkhh=996) 10 % EOSINOPHILS RELATIVE PERCENT (BEAKER) (test wkkh=113) 5 % BASOPHILS RELATIVE PERCENT (BEAKER) (test lvhi=708) 1 % NEUTROPHILS ABSOLUTE COUNT (BEAKER) (test wdbf=370) 3.46 K/ L 1.56-6.13 LYMPHOCYTES ABSOLUTE COUNT (BEAKER) (test hjrs=886) 1.13 K/ L 1.18-3.74 MONOCYTES ABSOLUTE COUNT (BEAKER) (test ievk=814) 0.52 K/ L 0.24-0.36 EOSINOPHILS ABSOLUTE COUNT (BEAKER) (test uifb=736) 0.25 K/ L 0.04-0.36 BASOPHILS ABSOLUTE COUNT (BEAKER) (test aigw=519) 0.04 K/ L 0.01-0.08 IMMATURE GRANULOCYTES-RELATIVE PERCENT (BEAKER) (test ipej=7156) 1 % 0-1 POCT-GLUCOSE [id number] 21:34:00* Test Item Value Reference Range Comments POC-GLUCOSE METER (BEAKER) (test izac=6302) 216 mg/dL 70-110 TESTED AT [facility] [address] [address] POCT-GLUCOSE [id number] 17:08:00* Test Item Value Reference Range Comments POC-GLUCOSE METER (BEAKER) (test qtce=5149) 266 mg/dL 70-110 TESTED AT [address] [address] POCT-GLUCOSE [id number] 11:29:00* Test Item Value Reference Range Comments POC-GLUCOSE METER (BEAKER) (test bfvp=9446) 245 mg/dL 70-110 TESTED AT [address] [address] RAD, CHEST, 1 VIEW, NON [id number] 07:36:00Reason for exam:->Removal of CT Follow Up/Pleural EffusionsShould this be performed at the bedside?->YesFINAL REPORT Chest one view INDICATION: Chest tube removal, pleural effusion COMPARISON: 10/09/2017 IMPRESSION: Right sided pleural thicke erin and effusion and lower right lung consolidation or atelectasis are stable. A small left pleural effusion may be present with stable left basilar atelectasi s or consolidation. Pulmonary vascular congestion has regressed. The cardiomedia stinal contours are stable. No pneumothorax is seen. Signed: Nolan Flower MDReport Verified Date/Time: 10/10/2017 07:36:03 Reading Location: [facility] Radiology Reading Room -GLUCOSE [id number] 07:23:00* Test Item Value Reference Range Comments POC-GLUCOSE METER (BEAKER) (test hehr=0030) 212 mg/dL 70-110 TESTED AT [address] [address] [id number] 05:38:00* Test Item Value Reference Range Comments MAGNESIUM (BEAKER) (test lvbi=765) 2.0 mg/dL 1.6-2.6 BASIC METABOLIC [id number] 05:38:00* Test Item Value Reference Range Comments SODIUM (BEAKER) (test umec=600) 138 meq/L 136-145 POTASSIUM (BEAKER) (test rnjl=220) 3.9 meq/L 3.5-5.1 CHLORIDE (BEAKER) (test sxks=282) 101 meq/L 98-107 CO2 (BEAKER) (test iwgz=917) 30 meq/L 22-29 BLOOD UREA NITROGEN (BEAKER) (test iyco=713) 11 mg/dL 7-21 CREATININE (BEAKER) (test tefs=999) 0.55 mg/dL 0.57-1.25 GLUCOSE RANDOM (BEAKER) (test dile=324) 205 mg/dL 70-105 CALCIUM (BEAKER) (test fsja=170) 9.0 mg/dL 8.4-10.2 EGFR (BEAKER) (test puzz=7082) 112 mL/min/1.73 sq m ESTIMATED GFR IS NOT ACCURATE CREATININE CLEARANCE IN PREDICTING GLOMERULAR FILTRATION RATE. ESTIMATED GFR IS NOT APPLICABLE FOR DIALYSIS PATIENTS. CBC (HEMOGRAM ONLY)2017-10-10 05:27:00* Test Item Value Reference Range Comments WHITE BLOOD CELL COUNT (BEAKER) (test twfm=271) 5.6 K/ L 3.5-10.5 RED BLOOD CELL COUNT (BEAKER) (test efqw=514) 3.82 M/ L 3.93-5.22 HEMOGLOBIN (BEAKER) (test isjd=377) 10.9 GM/DL 11.2-15.7 HEMATOCRIT (BEAKER) (test gdlv=119) 34.7 % 34.1-44.9 MEAN CORPUSCULAR VOLUME (BEAKER) (test xoiq=706) 90.8 fL 79.4-94.8 MEAN CORPUSCULAR HEMOGLOBIN (BEAKER) (test jryj=951) 28.5 pg 25.6-32.2 MEAN CORPUSCULAR HEMOGLOBIN CONC (BEAKER) (test jnju=796) 31.4 GM/DL 32.2-35.5 RED CELL DISTRIBUTION WIDTH (BEAKER) (test dapx=813) 13.9 % 11.7-14.4 PLATELET COUNT (BEAKER) (test kaxz=706) 192 K/CU MM 150-450 MEAN PLATELET VOLUME (BEAKER) (test hwcr=277) 10.8 fL 9.4-12.3 NUCLEATED RED BLOOD CELLS (BEAKER) (test ufdv=635) 0 /100 WBC 0-0 POCT-GLUCOSE [id number] 21:23:00* Test Item Value Reference Range Comments POC-GLUCOSE METER (BEAKER) (test parh=7071) 250 mg/dL 70-110 TESTED AT [facility] [address] [address] POCT-GLUCOSE [id number] 17:04:00* Test Item Value Reference Range Comments POC-GLUCOSE METER (BEAKER) (test qjig=2169) 272 mg/dL 70-110 TESTED AT [place] [id number] [facility] [address] RAD, CHEST, 1 VIEW, NON [id number] 11:53:00Reason for exam:->CT RemovalShould this be performed at the bedside?->YesFINAL REPORT Chest one view INDICATION: Chest tube removal COMPARISON: 10/09/2017 at 0704 hours IMPRESSION: Right chest tube has been removed. No pneumothorax is seen. Right sided pleural thickening and effusion and lower right lung consolidation or atelectasis are stable. A small left pleural effusion may be present with stable left basilar airspace disease. There is pulmonary vascular congestion. The cardiomediastinal contours are stable. Signed: Maldonado Flower Verified Date/Time: 10/09/2017 11:53:48 Reading Location: [facility] Radiology Reading Room -GLUCOSE [id number] 11:39:00* Test Item Value Reference Range Comments POC-GLUCOSE METER (BEAKER) (test xveb=4516) 275 mg/dL 70-110 TESTED AT [facility] [address] [address] POCT-GLUCOSE [id number] 08:13:00* Test Item Value Reference Range Comments POC-GLUCOSE METER (BEAKER) (test zoxk=0848) 238 mg/dL 70-110 TESTED AT [place] [id number] [facility] [address] RAD, CHEST, 1 VIEW, NON [id number] 07:47:00Reason for exam:->eval pulmonary congestionShould this be performed at the bedside?->YesFINAL REPORT Chest one view INDICATION: Pulmonary congestion COMPARISON: 10/08/2017 IMPRESSION: Right jugular line has been removed. Right chest tube is again noted. The cardiomediastinal contours are stable. Pleural thickening and effusions are stable with lower lung airspace disease, atelectasis versus pneumonitis. There is stable pulmonary vascular congestion. No pneumothorax is seen. Signed: Maldonado Flower MDReport Verified Date/Time: 10/09/2017 07:47:42 Reading Location: [facility] Radiology Reading Room IUM, IONIZED 2017-10-09 05:17:00* Test Item Value Reference Range Comments CALCIUM IONIZED (BEAKER) (test mdpf=956) 0.99 mmol/L 1.12-1.27 PH, BLOOD (BEAKER) (test fcfa=3051) 7.50 [id number] 05:01:00* Test Item Value Reference Range Comments MAGNESIUM (BEAKER) (test ajpa=006) 2.0 mg/dL 1.6-2.6 BASIC METABOLIC [id number] 05:01:00* Test Item Value Reference Range Comments SODIUM (BEAKER) (test wxvu=202) 136 meq/L 136-145 POTASSIUM (BEAKER) (test qedz=008) 4.1 meq/L 3.5-5.1 CHLORIDE (BEAKER) (test lvij=764) 102 meq/L 98-107 CO2 (BEAKER) (test vwnc=219) 25 meq/L 22-29 BLOOD UREA NITROGEN (BEAKER) (test cjmc=887) 13 mg/dL 7-21 CREATININE (BEAKER) (test xyej=927) 0.61 mg/dL 0.57-1.25 GLUCOSE RANDOM (BEAKER) (test krdw=910) 207 mg/dL 70-105 CALCIUM (BEAKER) (test nipm=295) 9.2 mg/dL 8.4-10.2 EGFR (BEAKER) (test epxt=0771) 99 mL/min/1.73 sq m ESTIMATED GFR IS NOT ACCURATE CREATININE CLEARANCE IN PREDICTING GLOMERULAR FILTRATION RATE. ESTIMATED GFR IS NOT APPLICABLE FOR DIALYSIS PATIENTS. CBC (HEMOGRAM ONLY)2017-10-09 04:32:00* Test Item Value Reference Range Comments WHITE BLOOD CELL COUNT (BEAKER) (test aztu=643) 7.3 K/ L 3.5-10.5 RED BLOOD CELL COUNT (BEAKER) (test bpxh=595) 3.78 M/ L 3.93-5.22 HEMOGLOBIN (BEAKER) (test crdx=182) 10.7 GM/DL 11.2-15.7 HEMATOCRIT (BEAKER) (test jlzy=100) 34.4 % 34.1-44.9 MEAN CORPUSCULAR VOLUME (BEAKER) (test fspd=466) 91.0 fL 79.4-94.8 MEAN CORPUSCULAR HEMOGLOBIN (BEAKER) (test iwxt=897) 28.3 pg 25.6-32.2 MEAN CORPUSCULAR HEMOGLOBIN CONC (BEAKER) (test ejgk=179) 31.1 GM/DL 32.2-35.5 RED CELL DISTRIBUTION WIDTH (BEAKER) (test pgxc=639) 14.5 % 11.7-14.4 PLATELET COUNT (BEAKER) (test xvkf=472) 155 K/CU MM 150-450 MEAN PLATELET VOLUME (BEAKER) (test pzeb=678) 11.6 fL 9.4-12.3 NUCLEATED RED BLOOD CELLS (BEAKER) (test pmsz=377) 0 /100 WBC 0-0 POCT-GLUCOSE [id number] 21:04:00* Test Item Value Reference Range Comments POC-GLUCOSE METER (BEAKER) (test bwap=5979) 295 mg/dL 70-110 TESTED AT [facility] [address] [address] POCT-GLUCOSE [id number] 17:26:00* Test Item Value Reference Range Comments POC-GLUCOSE METER (BEAKER) (test eugh=9477) 286 mg/dL 70-110 TESTED AT [facility] [address] [address] SURGICALLY OBTAINED CULTURE + GRAM [id number] 14:00:00* Test Item Value Reference Range Comments CULTURE (BEAKER) (test bpbm=4543) No growth GRAM STAIN RESULT (BEAKER) (test ylfw=1033) <1+ White blood cells seen GRAM STAIN RESULT (BEAKER) (test aajx=46349) No organisms seen POCT-GLUCOSE [id number] 11:20:00* Test Item Value Reference Range Comments POC-GLUCOSE METER (BEAKER) (test mfmk=9475) 325 mg/dL 70-110 Notified LISA RODRÍGUEZ/TESTED AT [facility] [address] [address] RAD, CHEST, 1 VIEW, NON [id number] 08:59:00Reason for exam:->eval pulmonary congestionShould this be performed at the bedside?->YesFINAL REPORT Chest one view INDICATION: Pulmonary congestion. COMPARISON: 10/07/2017 IMPRESSION: A right jugular line extends to the upper right atrium. Consider retraction 1-2 cm. A right chest tube is again seen. The cardiac mediastinal contours are stable accounting for positional differences. Dependent pleural effusions have redistributed or increased with adjacent airspace disease, atelectasis versus pneumonitis. There is pulmonary vascular congestion. No pneumothorax is seen. Signed: Maldonado Flower MDReport Verified Date/Time: 10/08/2017 08:59:08 Reading Location: [facility] Radiology Reading Room IUM, [id number] 05:38:00* Test Item Value Reference Range Comments CALCIUM IONIZED (BEAKER) (test raev=051) 1.16 mmol/L 1.12-1.27 PH, BLOOD (BEAKER) (test ttbe=3975) 7.36 [id number] 05:31:00* Test Item Value Reference Range Comments MAGNESIUM (BEAKER) (test fhbw=918) 1.9 mg/dL 1.6-2.6 BASIC METABOLIC [id number] 05:31:00* Test Item Value Reference Range Comments SODIUM (BEAKER) (test fzkj=442) 139 meq/L 136-145 POTASSIUM (BEAKER) (test stkd=747) 3.9 meq/L 3.5-5.1 CHLORIDE (BEAKER) (test nzyh=886) 105 meq/L 98-107 CO2 (BEAKER) (test ytfw=992) 27 meq/L 22-29 BLOOD UREA NITROGEN (BEAKER) (test zcnl=910) 9 mg/dL 7-21 CREATININE (BEAKER) (test lmjq=130) 0.64 mg/dL 0.57-1.25 GLUCOSE RANDOM (BEAKER) (test wlrn=263) 234 mg/dL 70-105 CALCIUM (BEAKER) (test omro=564) 8.9 mg/dL 8.4-10.2 EGFR (BEAKER) (test pboy=6718) 94 mL/min/1.73 sq m ESTIMATED GFR IS NOT ACCURATE CREATININE CLEARANCE IN PREDICTING GLOMERULAR FILTRATION RATE. ESTIMATED GFR IS NOT APPLICABLE FOR DIALYSIS PATIENTS. CBC (HEMOGRAM ONLY)2017-10-08 04:30:00* Test Item Value Reference Range Comments WHITE BLOOD CELL COUNT (BEAKER) (test jcto=520) 8.7 K/ L 3.5-10.5 RED BLOOD CELL COUNT (BEAKER) (test wtug=545) 3.59 M/ L 3.93-5.22 HEMOGLOBIN (BEAKER) (test gufo=129) 10.4 GM/DL 11.2-15.7 HEMATOCRIT (BEAKER) (test zjpz=546) 33.1 % 34.1-44.9 MEAN CORPUSCULAR VOLUME (BEAKER) (test euep=294) 92.2 fL 79.4-94.8 MEAN CORPUSCULAR HEMOGLOBIN (BEAKER) (test nvgv=121) 29.0 pg 25.6-32.2 MEAN CORPUSCULAR HEMOGLOBIN CONC (BEAKER) (test egiq=415) 31.4 GM/DL 32.2-35.5 RED CELL DISTRIBUTION WIDTH (BEAKER) (test dygf=604) 14.6 % 11.7-14.4 PLATELET COUNT (BEAKER) (test cjmf=260) 148 K/CU MM 150-450 MEAN PLATELET VOLUME (BEAKER) (test stqu=045) 11.2 fL 9.4-12.3 NUCLEATED RED BLOOD CELLS (BEAKER) (test okox=333) 0 /100 WBC 0-0 POCT-GLUCOSE [id number] 22:03:00* Test Item Value Reference Range Comments POC-GLUCOSE METER (BEAKER) (test kqpw=3459) 225 mg/dL 70-110 TESTED AT [facility] [address] [address] POCT-GLUCOSE [id number] 18:08:00* Test Item Value Reference Range Comments POC-GLUCOSE METER (BEAKER) (test dxjc=5795) 296 mg/dL 70-110 TESTED AT [facility] [address] [address] POCT-GLUCOSE [id number] 11:55:00* Test Item Value Reference Range Comments POC-GLUCOSE METER (BEAKER) (test jyow=5690) 323 mg/dL 70-110 Will Repeat Test/TESTED AT [place] [id number] [facility] [address] POCT-GLUCOSE [id number] 08:47:00* Test Item Value Reference Range Comments POC-GLUCOSE METER (BEAKER) (test drlc=0444) 263 mg/dL 70-110 TESTED AT [facility] [address] [address] SPIN/CONCENTRATION [id number] 06:07:00* Test Item Value Reference Range Comments CONCENTRATION CHARGED (BEAKER) (test hude=1361) Done [id number] 04:14:00* Test Item Value Reference Range Comments MAGNESIUM (BEAKER) (test eoxh=977) 1.8 mg/dL 1.6-2.6 BASIC METABOLIC [id number] 04:14:00* Test Item Value Reference Range Comments SODIUM (BEAKER) (test nhja=230) 142 meq/L 136-145 POTASSIUM (BEAKER) (test pbhi=105) 3.7 meq/L 3.5-5.1 CHLORIDE (BEAKER) (test evxw=217) 110 meq/L 98-107 CO2 (BEAKER) (test qizv=992) 21 meq/L 22-29 BLOOD UREA NITROGEN (BEAKER) (test wgch=802) 8 mg/dL 7-21 CREATININE (BEAKER) (test ueyq=163) 0.63 mg/dL 0.57-1.25 GLUCOSE RANDOM (BEAKER) (test rjiu=559) 211 mg/dL 70-105 CALCIUM (BEAKER) (test xswx=817) 8.8 mg/dL 8.4-10.2 EGFR (BEAKER) (test xqbl=8293) 96 mL/min/1.73 sq m ESTIMATED GFR IS NOT ACCURATE CREATININE CLEARANCE IN PREDICTING GLOMERULAR FILTRATION RATE. ESTIMATED GFR IS NOT APPLICABLE FOR DIALYSIS PATIENTS. RAD, CHEST, 1 VIEW, NON [id number] 04:09:00Reason for exam:->eval pulmonary congestionShould this be performed at the bedside?->YesFINAL REPORT Comparison exam: 10/06/2017 No focal pulmonary consolidation or pneumothorax. Blunting of the right costophrenic angle. Stable cardiomediastinal contours. Appropriate position of the support hardware. Signed: Reinier [place] Verified Date/Time: 10/07/2017 04:09:45 Reading Location: [address] Ortho Consult Reading Room (HEMOGRAM ONLY)2017-10-07 04:03:00* Test Item Value Reference Range Comments WHITE BLOOD CELL COUNT (BEAKER) (test rnvn=134) 9.5 K/ L 3.5-10.5 RED BLOOD CELL COUNT (BEAKER) (test suox=085) 3.76 M/ L 3.93-5.22 HEMOGLOBIN (BEAKER) (test vkpm=455) 10.9 GM/DL 11.2-15.7 HEMATOCRIT (BEAKER) (test enxb=368) 34.9 % 34.1-44.9 MEAN CORPUSCULAR VOLUME (BEAKER) (test xxps=283) 92.8 fL 79.4-94.8 MEAN CORPUSCULAR HEMOGLOBIN (BEAKER) (test yaxa=171) 29.0 pg 25.6-32.2 MEAN CORPUSCULAR HEMOGLOBIN CONC (BEAKER) (test umjk=211) 31.2 GM/DL 32.2-35.5 RED CELL DISTRIBUTION WIDTH (BEAKER) (test pdzm=174) 14.5 % 11.7-14.4 PLATELET COUNT (BEAKER) (test knst=855) 165 K/CU MM 150-450 MEAN PLATELET VOLUME (BEAKER) (test vsyp=051) 11.6 fL 9.4-12.3 NUCLEATED RED BLOOD CELLS (BEAKER) (test qmhw=618) 0 /100 WBC 0-0 CALCIUM, [id number] 03:49:00* Test Item Value Reference Range Comments CALCIUM IONIZED (BEAKER) (test napr=080) 1.19 mmol/L 1.12-1.27 PH, BLOOD (BEAKER) (test tjbw=4270) 7.38 POCT-GLUCOSE [id number] 22:59:00* Test Item Value Reference Range Comments POC-GLUCOSE METER (BEAKER) (test ptwn=7810) 250 mg/dL 70-110 TESTED AT [place] [id number] [facility] [address] POCT-GLUCOSE [id number] 18:24:00* Test Item Value Reference Range Comments POC-GLUCOSE METER (BEAKER) (test nosu=6331) 186 mg/dL 70-110 TESTED AT [address] [address] POCT-GLUCOSE [id number] 16:42:00* Test Item Value Reference Range Comments POC-GLUCOSE METER (BEAKER) (test yqgp=2579) 157 mg/dL 70-110 TESTED AT [address] [address] POCT-GLUCOSE [id number] 15:40:00* Test Item Value Reference Range Comments POC-GLUCOSE METER (BEAKER) (test ssby=9414) 142 mg/dL 70-110 TESTED AT [address] [address] POCT-GLUCOSE [id number] 15:38:00* Test Item Value Reference Range Comments POC-GLUCOSE METER (BEAKER) (test iect=9797) 117 mg/dL 70-110 TESTED AT [address] [address] POCT-GLUCOSE [id number] 15:38:00* Test Item Value Reference Range Comments POC-GLUCOSE METER (BEAKER) (test ejco=7291) 130 mg/dL 70-110 TESTED AT [address] [address] RAD, CHEST, 1 VIEW, NON [id number] 09:59:00Reason for exam:->chest tubeShould this be performed at the bedside?->YesFINAL REPORT Portable chest CLINICAL HISTORY: Chest tube. Comparison Study: October 05, 2017. FINDINGS: The cardiac silhouette is enlarged. A right-sided jugular line and right-sided chest tube are seen. There are increased interstitial markings with some blunting of the right costophrenic angle. Atelectatic changes are seen. No pneumothorax is noted. Some gas projects over the right chest wall. Degenerative changes are seen. IMPRESSION: Interval extubation. No other significant change. Signed: Wisam Viverosort Verified Date/Time: 10/06/2017 09:59:34 Reading Location: [facility] C013Y [place] Body Reading Room - GLUCOSE [id number] 08:56:00* Test Item Value Reference Range Comments POC-GLUCOSE METER (BEAKER) (test djyu=8557) 136 mg/dL 70-110 TESTED AT [address] [address] POCT-GLUCOSE [id number] 08:56:00* Test Item Value Reference Range Comments POC-GLUCOSE METER (BEAKER) (test czaf=2204) 178 mg/dL 70-110 TESTED AT [address] [address] POCT-GLUCOSE [id number] 08:56:00* Test Item Value Reference Range Comments POC-GLUCOSE METER (BEAKER) (test fbuh=3896) 197 mg/dL 70-110 TESTED AT [address] [address] POCT-GLUCOSE [id number] 08:56:00* Test Item Value Reference Range Comments POC-GLUCOSE METER (BEAKER) (test sook=9952) 258 mg/dL 70-110 TESTED AT [address] [address] POCT-GLUCOSE [id number] 07:08:00* Test Item Value Reference Range Comments POC-GLUCOSE METER (BEAKER) (test bvpr=9984) 134 mg/dL 70-110 TESTED AT [address] [address] [id number] 05:12:00* Test Item Value Reference Range Comments MAGNESIUM (BEAKER) (test rooq=779) 1.8 mg/dL 1.6-2.6 BASIC METABOLIC [id number] 05:12:00* Test Item Value Reference Range Comments SODIUM (BEAKER) (test stdx=047) 139 meq/L 136-145 POTASSIUM (BEAKER) (test bwqu=863) 3.6 meq/L 3.5-5.1 CHLORIDE (BEAKER) (test ntyt=865) 109 meq/L 98-107 CO2 (BEAKER) (test ajei=908) 22 meq/L 22-29 BLOOD UREA NITROGEN (BEAKER) (test lkgl=296) 7 mg/dL 7-21 CREATININE (BEAKER) (test xldu=661) 0.58 mg/dL 0.57-1.25 GLUCOSE RANDOM (BEAKER) (test hcuw=222) 193 mg/dL 70-105 CALCIUM (BEAKER) (test dahv=270) 9.7 mg/dL 8.4-10.2 EGFR (BEAKER) (test oszb=6911) 105 mL/min/1.73 sq m ESTIMATED GFR IS NOT ACCURATE CREATININE CLEARANCE IN PREDICTING GLOMERULAR FILTRATION RATE. ESTIMATED GFR IS NOT APPLICABLE FOR DIALYSIS PATIENTS. CBC (HEMOGRAM ONLY)2017-10-06 04:39:00* Test Item Value Reference Range Comments WHITE BLOOD CELL COUNT (BEAKER) (test lfiz=015) 10.6 K/ L 3.5-10.5 RED BLOOD CELL COUNT (BEAKER) (test rfpu=466) 4.00 M/ L 3.93-5.22 HEMOGLOBIN (BEAKER) (test udcf=504) 11.5 GM/DL 11.2-15.7 HEMATOCRIT (BEAKER) (test gcoo=989) 35.3 % 34.1-44.9 MEAN CORPUSCULAR VOLUME (BEAKER) (test bchg=395) 88.3 fL 79.4-94.8 MEAN CORPUSCULAR HEMOGLOBIN (BEAKER) (test ctlu=160) 28.8 pg 25.6-32.2 MEAN CORPUSCULAR HEMOGLOBIN CONC (BEAKER) (test evbp=648) 32.6 GM/DL 32.2-35.5 RED CELL DISTRIBUTION WIDTH (BEAKER) (test urqw=248) 13.8 % 11.7-14.4 PLATELET COUNT (BEAKER) (test cbko=588) 166 K/CU MM 150-450 MEAN PLATELET VOLUME (BEAKER) (test yume=129) 11.6 fL 9.4-12.3 NUCLEATED RED BLOOD CELLS (BEAKER) (test hmdy=005) 0 /100 WBC 0-0 BLOOD GAS, [id number] 04:33:00* Test Item Value Reference Range Comments PH ARTERIAL (BEAKER) (test acqo=665) 7.42 7.35-7.45 PCO2 ARTERIAL (BEAKER) (test nusg=784) 39 mmHg 35-45 PO2 ARTERIAL (BEAKER) (test xsal=003) 70 mmHg 80-90 O2 SATURATION ARTERIAL (BEAKER) (test wvqh=183) 94.4 % 96.0-97.0 HCO3 ARTERIAL (BEAKER) (test hodt=292) 25 mmol/L 21-29 BASE EXCESS ARTERIAL (BEAKER) (test kdbj=398) 0.7 mmol/L -2.0-3.0 PATIENT TEMPERATURE (BEAKER) (test ydeu=8803) 37.1 C FIO2 (BEAKER) (test zlxo=6414) 40.0 % GLUCOSE-STAT [id number] 04:33:00* Test Item Value Reference Range Comments GLUCOSE RANDOM (BEAKER) (test jifu=087) 188 mg/dL 70-110 SODIUM NA-STAT [id number] 04:26:00* Test Item Value Reference Range Comments SODIUM (BEAKER) (test dbay=095) 139 meq/L 135-148 POTASSIUM-STAT [id number] 04:26:00* Test Item Value Reference Range Comments POTASSIUM (BEAKER) (test aswr=441) 3.5 meq/L 3.6-5.5 HGB/HCT (H&H) - STAT [id number] 04:26:00* Test Item Value Reference Range Comments HEMOGLOBIN (BEAKER) (test jpzb=183) 12.5 g/dL 12.0-15.0 HEMATOCRIT (BEAKER) (test xhjt=100) 37.0 % 36.0-45.0 POCT-GLUCOSE [id number] 03:02:00* Test Item Value Reference Range Comments POC-GLUCOSE METER (BEAKER) (test xkjo=6381) 210 mg/dL 70-110 TESTED AT [address] [address] POCT-GLUCOSE [id number] 03:02:00* Test Item Value Reference Range Comments POC-GLUCOSE METER (BEAKER) (test thnu=4755) 248 mg/dL 70-110 TESTED AT [address] [address] BLOOD GAS, [id number] 00:08:00* Test Item Value Reference Range Comments PH ARTERIAL (BEAKER) (test jbyq=616) 7.40 7.35-7.45 PCO2 ARTERIAL (BEAKER) (test gqqm=641) 40 mmHg 35-45 PO2 ARTERIAL (BEAKER) (test vatn=792) 77 mmHg 80-90 O2 SATURATION ARTERIAL (BEAKER) (test lyav=594) 95.6 % 96.0-97.0 HCO3 ARTERIAL (BEAKER) (test wvdn=264) 24 mmol/L 21-29 BASE EXCESS ARTERIAL (BEAKER) (test cvlz=294) -0.9 mmol/L -2.0-3.0 PATIENT TEMPERATURE (BEAKER) (test yiif=9766) 36.6 C FIO2 (BEAKER) (test ixxy=6790) 40.0 % RAD, CHEST, 1 VIEW, NON [id number] 23:17:00Reason for exam:->intubated,post surgeryShould this be performed at the bedside?->YesFINAL REPORT Chest, portable AP view History: Intubated, post surgery Comparison: 10/03/2017 IMPRESSION: The tip of the endotracheal tube is approximately 2.7 cm above the frankie. Right IJ central venous catheter tip terminates at the cavoatrial junction. The heart is within normal limits of size. Right-sided chest tube is in place. A trace pneumothorax is present. Simultaneous emphysema is noted along the right lateral chest wall. Bibasilar atelectasis is present. The previously described right midlung zone masses cannot be evident on current examination. Signed: Kishan Heard [facility] Verified Date/Time: 10/05/2017 23:17:20 Reading Location: [facility] P048 Angio Body Reading Room El ectronically signed by: KISHAN HEARD on 10/05/2017 11:17 PM PHOSPHORUS 2017-10-05 22:08:00* Test Item Value Reference Range Comments PHOSPHORUS (BEAKER) (test hbow=490) 3.2 mg/dL 2.3-4.7 [id number] 22:08:00* Test Item Value Reference Range Comments MAGNESIUM (BEAKER) (test dkix=153) 1.9 mg/dL 1.6-2.6 BASIC METABOLIC [id number] 22:08:00* Test Item Value Reference Range Comments SODIUM (BEAKER) (test wayv=587) 138 meq/L 136-145 POTASSIUM (BEAKER) (test zyyz=013) 3.4 meq/L 3.5-5.1 CHLORIDE (BEAKER) (test harn=463) 107 meq/L 98-107 CO2 (BEAKER) (test dlto=022) 23 meq/L 22-29 BLOOD UREA NITROGEN (BEAKER) (test bthx=492) 9 mg/dL 7-21 CREATININE (BEAKER) (test pkjh=790) 0.68 mg/dL 0.57-1.25 GLUCOSE RANDOM (BEAKER) (test gmvt=776) 260 mg/dL 70-105 CALCIUM (BEAKER) (test vpho=343) 10.4 mg/dL 8.4-10.2 EGFR (BEAKER) (test ngfu=3007) 88 mL/min/1.73 sq m ESTIMATED GFR IS NOT ACCURATE CREATININE CLEARANCE IN PREDICTING GLOMERULAR FILTRATION RATE. ESTIMATED GFR IS NOT APPLICABLE FOR DIALYSIS PATIENTS. LACTIC ACID, ARTERIAL, WHOLE [id number] 22:05:00* Test Item Value Reference Range Comments LACTATE BLOOD ARTERIAL (2) (BEAKER) (test zchu=8780) 0.8 mmol/L 0.5-2.2 Effective 08/25/2015: Units/Reference Range ChangeNew: 0.5-2.2 mmol/L Previous: 5 -20 mg/dLCBC (HEMOGRAM ONLY)2017-10-05 21:42:00* Test Item Value Reference Range Comments WHITE BLOOD CELL COUNT (BEAKER) (test acui=661) 9.7 K/ L 3.5-10.5 RED BLOOD CELL COUNT (BEAKER) (test uury=173) 3.78 M/ L 3.93-5.22 HEMOGLOBIN (BEAKER) (test ykju=733) 11.1 GM/DL 11.2-15.7 HEMATOCRIT (BEAKER) (test ckpu=854) 33.7 % 34.1-44.9 MEAN CORPUSCULAR VOLUME (BEAKER) (test zueg=068) 89.2 fL 79.4-94.8 MEAN CORPUSCULAR HEMOGLOBIN (BEAKER) (test zpti=819) 29.4 pg 25.6-32.2 MEAN CORPUSCULAR HEMOGLOBIN CONC (BEAKER) (test uerv=509) 32.9 GM/DL 32.2-35.5 RED CELL DISTRIBUTION WIDTH (BEAKER) (test tgpd=959) 13.9 % 11.7-14.4 PLATELET COUNT (BEAKER) (test rjic=378) 160 K/CU MM 150-450 MEAN PLATELET VOLUME (BEAKER) (test qzxx=431) 11.3 fL 9.4-12.3 NUCLEATED RED BLOOD CELLS (BEAKER) (test lube=514) 0 /100 WBC 0-0 OXYGEN SATURATION, [id number] 21:38:00* Test Item Value Reference Range Comments O2 SATURATION (MEASURED) (BEAKER) (test jfin=3170) 71.3 % BLOOD GAS, [id number] 21:38:00* Test Item Value Reference Range Comments PH ARTERIAL (BEAKER) (test leuf=927) 7.38 7.35-7.45 PCO2 ARTERIAL (BEAKER) (test xmhh=851) 42 mmHg 35-45 PO2 ARTERIAL (BEAKER) (test vair=035) 94 mmHg 80-90 O2 SATURATION ARTERIAL (BEAKER) (test lbdm=914) 97.3 % 96.0-97.0 HCO3 ARTERIAL (BEAKER) (test wchs=597) 24 mmol/L 21-29 BASE EXCESS ARTERIAL (BEAKER) (test poqm=279) -1.1 mmol/L -2.0-3.0 PATIENT TEMPERATURE (BEAKER) (test weal=7956) 36.2 C FIO2 (BEAKER) (test vniw=5074) 60.0 % GLUCOSE-STAT [id number] 21:38:00* Test Item Value Reference Range Comments GLUCOSE RANDOM (BEAKER) (test nmvp=829) 251 mg/dL 70-110 POTASSIUM-STAT [id number] 21:38:00* Test Item Value Reference Range Comments POTASSIUM (BEAKER) (test rrxw=724) 3.3 meq/L 3.6-5.5 HGB/HCT (H&H) - STAT [id number] 21:38:00* Test Item Value Reference Range Comments HEMOGLOBIN (BEAKER) (test kvko=326) 11.9 g/dL 12.0-15.0 HEMATOCRIT (BEAKER) (test ingq=184) 35.0 % 36.0-45.0 CALCIUM, [id number] 21:38:00* Test Item Value Reference Range Comments CALCIUM IONIZED (BEAKER) (test ezkj=854) 1.31 mmol/L 1.12-1.27 PH, BLOOD (BEAKER) (test vlck=2059) 7.37 SODIUM NA-STAT [id number] 21:37:00* Test Item Value Reference Range Comments SODIUM (BEAKER) (test gfxq=400) 140 meq/L 135-148 BLOOD GAS, [id number] 20:09:00* Test Item Value Reference Range Comments PH ARTERIAL (BEAKER) (test omvm=824) 7.58 7.35-7.45 PCO2 ARTERIAL (BEAKER) (test owvi=409) 24 mmHg 35-45 PO2 ARTERIAL (BEAKER) (test agaj=939) 59 mmHg 80-90 O2 SATURATION ARTERIAL (BEAKER) (test trox=051) 95.8 % 96.0-97.0 HCO3 ARTERIAL (BEAKER) (test cudu=438) 23 mmol/L 21-29 BASE EXCESS ARTERIAL (BEAKER) (test ufvn=280) 1.3 mmol/L -2.0-3.0 PATIENT TEMPERATURE (BEAKER) (test rqkf=7422) 35.0 C FIO2 (BEAKER) (test fxyh=0063) 100.0 % GLUCOSE-STAT [id number] 20:09:00* Test Item Value Reference Range Comments GLUCOSE RANDOM (BEAKER) (test ucmy=387) 238 mg/dL 70-110 HGB/HCT (H&H) - STAT [id number] 20:09:00* Test Item Value Reference Range Comments HEMOGLOBIN (BEAKER) (test zosk=753) 11.8 g/dL 12.0-15.0 HEMATOCRIT (BEAKER) (test qvof=569) 35.0 % 36.0-45.0 SODIUM NA-STAT [id number] 20:08:00* Test Item Value Reference Range Comments SODIUM (BEAKER) (test ryms=732) 137 meq/L 135-148 POTASSIUM-STAT [id number] 20:08:00* Test Item Value Reference Range Comments POTASSIUM (BEAKER) (test bxpp=149) 3.5 meq/L 3.6-5.5 POCT-GLUCOSE [id number] 13:11:00* Test Item Value Reference Range Comments POC-GLUCOSE METER (BEAKER) (test vjkk=9194) 243 mg/dL 70-110 TESTED AT [facility] [address] [address] RAD, CHEST, 2 [id number] 12:36:00Reason for exam:->pre opFINAL REPORT Chest, 2 views. Clinical History: pre op. Right chest wall mass. Comparison Study: None Findings: The cardiac silhouette is unremarkable. A 3.9 x 4.0 cm opacity projects over the right thorax. On the lat eral radiograph it is seen against the anterior chest wall. A mass cannot be exc luded. No pleural effusion or pneumothorax is seen. Degenerative changes are not ed. IMPRESSION: Mass in the right anterior thorax. Further assessment with CT sc an is recommended. Signed: Wisam Viveros MDR[facility] Verified Date/Time: 018 12:36:40 Reading Location: [address] Radiology Reading Room Electro nically signed by: WISAM VIVEROS M.D. on 10/03/2017 12:36 PM BASIC METABOLIC [id number] 11:37:00* Test Item Value Reference Range Comments SODIUM (BEAKER) (test pklr=452) 142 meq/L 136-145 POTASSIUM (BEAKER) (test wcoo=039) 3.9 meq/L 3.5-5.1 Specimen slightly hemolyzed CHLORIDE (BEAKER) (test ptij=301) 105 meq/L 98-107 CO2 (BEAKER) (test iiif=060) 24 meq/L 22-29 BLOOD UREA NITROGEN (BEAKER) (test iwha=956) 10 mg/dL 7-21 CREATININE (BEAKER) (test jdfw=333) 0.73 mg/dL 0.57-1.25 Specimen slightly hemolyzed GLUCOSE RANDOM (BEAKER) (test xrqg=041) 245 mg/dL 70-105 CALCIUM (BEAKER) (test fcjc=682) 9.9 mg/dL 8.4-10.2 EGFR (BEAKER) (test mlbj=5905) 81 mL/min/1.73 sq m ESTIMATED GFR IS NOT ACCURATE CREATININE CLEARANCE IN PREDICTING GLOMERULAR FILTRATION RATE. ESTIMATED GFR IS NOT APPLICABLE FOR DIALYSIS PATIENTS. PROTHROMBIN TIME/[id number] 11:09:00* Test Item Value Reference Range Comments PROTIME (BEAKER) (test vyzu=836) 13.6 seconds 11.7-14.7 INR (BEAKER) (test jbys=910) 1.0 <=5.9 RECOMMENDED COUMADIN/WARFARIN INR THERAPY RANGESSTANDARD DOSE: 2.0 - 3.0 Inclu alek: PROPHYLAXIS for venous thrombosis, systemic embolization; TREATMENT for yaron ous thrombosis and/or pulmonary embolus.HIGH RISK: Target INR is 2.5-3.5 for pat ients with mechanical heart valves.CBC W/PLT COUNT & AUTO [id number] 11:02:00* Test Item Value Reference Range Comments WHITE BLOOD CELL COUNT (BEAKER) (test yfys=445) 7.1 K/ L 3.5-10.5 RED BLOOD CELL COUNT (BEAKER) (test ypec=362) 4.60 M/ L 3.93-5.22 HEMOGLOBIN (BEAKER) (test quuh=732) 13.4 GM/DL 11.2-15.7 HEMATOCRIT (BEAKER) (test kpbm=078) 41.6 % 34.1-44.9 MEAN CORPUSCULAR VOLUME (BEAKER) (test wets=019) 90.4 fL 79.4-94.8 MEAN CORPUSCULAR HEMOGLOBIN (BEAKER) (test kxvy=050) 29.1 pg 25.6-32.2 MEAN CORPUSCULAR HEMOGLOBIN CONC (BEAKER) (test bmzj=451) 32.2 GM/DL 32.2-35.5 RED CELL DISTRIBUTION WIDTH (BEAKER) (test rtnk=916) 14.2 % 11.7-14.4 PLATELET COUNT (BEAKER) (test bjfy=252) 187 K/CU MM 150-450 MEAN PLATELET VOLUME (BEAKER) (test scyz=803) 11.2 fL 9.4-12.3 NUCLEATED RED BLOOD CELLS (BEAKER) (test dnvq=099) 0 /100 WBC 0-0 NEUTROPHILS RELATIVE PERCENT (BEAKER) (test jmlo=595) 72 % LYMPHOCYTES RELATIVE PERCENT (BEAKER) (test ufhi=162) 18 % MONOCYTES RELATIVE PERCENT (BEAKER) (test uuud=081) 7 % EOSINOPHILS RELATIVE PERCENT (BEAKER) (test wwyn=556) 2 % BASOPHILS RELATIVE PERCENT (BEAKER) (test xfmn=789) 1 % NEUTROPHILS ABSOLUTE COUNT (BEAKER) (test ejkl=623) 5.16 K/ L 1.56-6.13 LYMPHOCYTES ABSOLUTE COUNT (BEAKER) (test uucn=176) 1.30 K/ L 1.18-3.74 MONOCYTES ABSOLUTE COUNT (BEAKER) (test cbhd=286) 0.50 K/ L 0.24-0.36 EOSINOPHILS ABSOLUTE COUNT (BEAKER) (test ntcl=148) 0.11 K/ L 0.04-0.36 BASOPHILS ABSOLUTE COUNT (BEAKER) (test zekl=676) 0.04 K/ L 0.01-0.08 IMMATURE GRANULOCYTES-RELATIVE PERCENT (BEAKER) (test jkbk=5019) 0 % 0-1 [facility], MULTI, PHARM, [id number] 16:30:00FINAL REPORT PROCEDURE: 2-Day Stress/Rest MYOCARDIAL PERFUSION SPECT with regadenoson\\XA9\\ CPT CODE: 80047 INDICATION: Cardiovascular evaluation prior to chest wall surgery HISTORY: Cardiac risk factors: Diabetes, hypertension, hyperlipidemia, family history of early CAD. Other cardiovascular history: No reported CAD. Current cardiovascular-related medications: Amlodipine, losartan, metoprolol. PROTOCOL: 32.6 mCi of Tc-99m sestamibi was injected iv at expected peak pharmacologic effect, and gated SPECT (tomographic) images were obtained. On a separate day, 30.8 mCi of Tc-99m se stamibi was injected iv at rest, and SPECT images were obtained. PRELIMINARY ST RESS TEST DATA FROM NONINVASIVE CARDIOLOGY: Pharmacologic stress was by 10-seco nd iv infusion of 0.4 mg of regadenoson. Radiotracer was injected 30 seconds aft er start of stress. Heart rate was 81 beats/min at rest and 103 beats/min (65 % of MPHR) at tracer injection. BP was 147/90 mmHg at rest and 171/71 mmHg at trac er injection. Stress was stopped for predetermined endpoint. The patient experie nced flushing and mild dyspnea; treatment was not required. Preliminary ECG eval uation revealed sinus rhythm at rest and no ischemic changes with stress. (Final ECG interpretation and other stress and monitoring data are reported separately by Cardiology.) IMAGING FINDINGS: Study quality is adequate. Images obt ained after rest and stress injections show overall normal LV activity. There is mildly decreased radiotracer uptake in the anterior wall with normal wall motion both at rest and after stress - this is consistent with attenuation artifact. LV and RV volumes appear normal. QGS LVEF is >70%. IMPRESSION: 1. Normal study. 2. Appropriate pharmacologic stress. 3. Normal myocardial perfusion. 4. Normal resting LV function. 5. Normal extracardiac tracer distribution. 6. No previous [facility] study for comparison. NONINVASIVE RISK STRATIFICATION: The above findings are considered low risk (<1% annual mortality rate) based on the following criterion:- Normal or small myocardial perfusion defect at rest or with stress(JACC. 2012;59(9):857-81.) Signed: Jared Huntley MDReport Verified Date/Time: 09/12/2017 16:30:36 Reading Location: [address] [facility] Reading Room SCAN QUANTITATIVE [place] [address] Patient Name: BREANA GOMEZ MR #: [id number] : 1955 Age/Sex: 62/F Req #: [id number] Adm Physician: Ordered by: KATHRIN LAM MD Report #: [id number] Location: [place] Room/Bed: Procedure: [id number] NM/VQ SCAN QUANTITATIVE E xam Date: Exam Time: REPORT STATUS: Signed Ventilation /Perfusion Lung Study with Quantitation Reason for exam: 62 F with mass associated with right 4th rib anteriorly; pre-operative evaluation Report: Xenon-133 gas 12 mCi was administered via in relation. Dynamic im ages of the lungs in the posterior projection were obtained through single daniella ath, equilibrium and washout phases. Distribution of tracer activity is sligh tly irregular throughout the lungs. No ventilatory defects are seen. Washout i s diffusely delayed without air trapping. Following intravenous administr ation of Tc-99m MAA 6.2 mCi, perfusion images of the lungs were obtained in mu ltiple projections. Distribution of tracer appears physiologic throughout the lungs. No segmental perfusion defects of any size are seen. No space occupy ing mass is seen. The cardiomediastinal silhouette is unremarkable. Qu antitation was performed using geometric means of the anterior and posterior p erfusion images: Total lung volumes: Left lung 49% and right lung 51 %. Differential contributions based on three lung zones per lung: Upper z one of left lung 14%, middle zone of left lung 21%, lower zone of left lung 15 %. Upper zone of right lung 15%, middle zone of right lung 24%, lower third of right lung 13%. Impression: 1. Quantitation of lung function is as given above. The quantitation shows a normal differential between the micaela gs. 2. Scan finding represent a VERY LOW probability of acute pulmonary emb olic disease based on the PIOPED II criteria. 3. Scan evidence of obstruc tive lung disease. Signed by: Dr. Paolo James M.D. on 07/03/2017 4:32 PM Dictated By: PAOLO JAMES MD 1632 COPY TO: Laura LAM MD FNA WITH IMAGE GUIDANCE [place] [address] Patient Name: BREANA GOMEZ MR #: [id number] : 1955 Age/Sex: 62/F Req #: [id number] Adm Physician: Ordered by: KATHRIN LAM MD Report #: [id number] Location: CT Room/Bed: Procedure: [id number] IR/FNA WITH IMAGE GUIDANCE Exam Date: 06/19/17 Exam Time: [address] ATUS: Signed PROCEDURE: CT GUIDED NEEDLE PLACEMENT COMPARISON: CT scan of the chest performed at an outside facility 06/06/2017. Preprocedure diagn osis: Right pleural-chest wall mass Post procedure diagnosis: Right pleural-ch est wall cystic lesion Novel[employer] Candy Maker: Olivier Fernandez M.D. Sedation/anesthesia: Versed 1 mg intravenous, fentanyl 50 mcg intravenous. The patient's heart rat e and pulse oximetry were continuously monitored by the interventional radiol ogy nurse. Blood pressure was monitored at 5 minute intervals. Addition al medications: Lidocaine 1% for local anesthesia Estimated blood loss: Less t doran 5 cc Blood products administered: None Specimens obtained: 70 cc bloody, debris laden fluid Implants/grafts: None Condition at completion of procedu re: Stable Disposition: Radiology holding area Complications: None Procedure in detail: Informed consent for the procedure was obtained from the patient and documented in the medical record. The patient was placed in the supine position on the CT couch. A marker grid was placed over the anterior chest and limited CT acquisition was performed. A suitable percu taneous approach the right anterior pleural-chest wall lesion was identified and the overlying skin was prepped and draped in standard sterile fashion. 1% lidocaine was infiltrated into the skin and subcutaneous tissues for local anesthesia. Then under intermittent CT guidance, a 16 gauge needle guide was advanced into the periphery of the lesion. A single fine needle aspir ation specimen was obtained. Subsequently, aspiration through the needle g uide yielded approximately 70 cc of bloody, debris laden fluid containing thi ck, gelatinous material. Specimens were submitted to on-site cytopathol ogy personnel and intralesional location was confirmed. Approximately 4 0 cc of fluid was submitted for cytologic and pathologic analysis. Approximat taylor 30 cc of fluid was placed in a specimen container for microbiologic silvia sis. At the conclusion of sampling the guide was removed and a sterile dressing was applied. The patient tolerated the procedure well without immedi ate complication. CONCLUSION: Successful CT-guided aspiration of a complex cystic lesion along the right anterior pleura/chest wall without im mediate complication. Specimens were submitted in formalin for pathologic analysis, as well as directly to the microbiology lab for Gram stain, aerobic , anaerobic, and fungal cultures. Dictated by: Olivier serrano 06/19/2017 at 12:22 Electronically approved by: Olivier Fernandez M.D. on 05/25 at 12:22 Dictated By: OLIVIER FERNANDEZ MD Electronically Sig linnea By: OLIVIER FERNANDEZ MD on 06/19/17 1222 Transcribed By: MELODIE on 06/19/17 122 2 COPY TO: KATHRIN LAM MD CT GUIDED BIOPSY/ASPIR/INJ/JIMMY [place] [address] Patient Name: BREANA GOMEZ MR #: [id number] : 1955 Age/Sex: 62/F Req #: [id number] Adm Physicia n: Ordered by: KATHRIN LAM MD Report #: [id number] Location: CT Room /Bed: Procedure: [id number] CT/CT GUIDED BIOPSY/ASPIR/ INJ/JIMMY Exam Date: 06/19/17 Exam Time: 1045 RE PORT STATUS: Signed PROCEDURE: CT GUIDED NEEDLE PLACEMENT COMPARISON: C T scan of the chest performed at an outside facility 06/06/2017. Preprocedur e diagnosis: Right pleural-chest wall mass Post procedure diagnosis: Right ple ural-chest wall cystic lesion [employer] Candy Maker: Olivier Fernandez M.D. Sedation/anest hesia: Versed 1 mg intravenous, fentanyl 50 mcg intravenous. The patient's he art rate and pulse oximetry were continuously monitored by the interventional radiology nurse. Blood pressure was monitored at 5 minute intervals. A dditional medications: Lidocaine 1% for local anesthesia Estimated blood loss: Less than 5 cc Blood products administered: None Specimens obtained: 70 cc bloody, debris laden fluid Implants/grafts: None Condition at completion of procedure: Stable Disposition: Radiology holding area Complications: Non e Procedure in detail: Informed consent for the procedure was ob tained from the patient and documented in the medical record. The patie nt was placed in the supine position on the CT couch. A marker grid was place d over the anterior chest and limited CT acquisition was performed. A suitabl e percutaneous approach the right anterior pleural-chest wall lesion was iden tified and the overlying skin was prepped and draped in standard sterile fash ion. 1% lidocaine was infiltrated into the skin and subcutaneous tissues for local anesthesia. Then under intermittent CT guidance, a 16 gauge needl e guide was advanced into the periphery of the lesion. A single fine needle aspiration specimen was obtained. Subsequently, aspiration through the n eedle guide yielded approximately 70 cc of bloody, debris laden fluid contain ing thick, gelatinous material. Specimens were submitted to on-site cyt opathology personnel and intralesional location was confirmed. Approxim ately 40 cc of fluid was submitted for cytologic and pathologic analysis. Alf roximately 30 cc of fluid was placed in a specimen container for microbiologi c analysis. At the conclusion of sampling the guide was removed and a ster ile dressing was applied. The patient tolerated the procedure well without immediate complication. CONCLUSION: Successful CT-guided aspirat ion of a complex cystic lesion along the right anterior pleura/chest wall wit hout immediate complication. Specimens were submitted in formalin for path ologic analysis, as well as directly to the microbiology lab for Gram stain, aerobic, anaerobic, and fungal cultures. Dictated by: Olivier Fernandez M.D. on 06/19/2017 at 12:22 Electronically approved by: Olivier Fernandez M.D. on 06/19/2017 at 12:22 Dictated By: OLIVIER FERNANDEZ MD Electronica lly Signed By: OLIVIER FERNANDEZ MD on 06/19/17 1222 Transcribed By: MELODIE on 06/19 1222 COPY TO: KATHRIN LAM MD
--- OUTSIDE RECORDS SUMMARY | 2018-11-18 21:35 | XMS REPORT | Summary of Care ---
Author Author VANDANA ALBARRAN N.P. Organization Unknown Address Unknown Phone Unavailable Care Team Providers Care Cart Driver Name Role Phone VANDANA ALBARRAN N.P. Unavailable Unavailable Holger uL MD Unavailable Unavailable Unavailable Unavailable Functional Status Name Dates Details Functional status health issues are not documented Status: Name Dates Details Cognitive status health issues are not documented Status: Problems Name Dates Details Vitamin D deficiency (268.9, E55.9) Status: Active B12 deficiency (266.2, E53.8) Status: Active Medications Name Dates Details Nascobal 500 MCG/0.1ML Nasal Solution USE 1 SPRAY IN ONE NOSTRIL ONCE WEEKLY. Quantity: 4 VANDANA ALBARRAN N.P. * Start : 25-Mar-2018 Active Vitamin D (Ergocalciferol) 63366 UNIT Oral Capsule TAKE 1 CAPSULE BY MOUTH TWO TIMES PER WEEK * Quantity: 8 Refills: 2 VANDANA ALBARRAN N.P. * Start : 24-Apr-2018 Active Vitamin D (Ergocalciferol) 98201 UNIT Oral Capsule TAKE 1 CAPSULE WEEKLY. * Quantity: 4 Refills: 3 VANDANA ALBARRAN N.P. * Start : 01-Jul-2018 Active Allergies and Adverse Reactions Name Dates Details Allergy history not documented Status: Procedures Procedure Dates Details Procedures not documented Immunization Name Dates Details Immunizations not documented Social History Name Dates Details Unknown if ever smoked Vital Signs Date Test Result Details No Known Vitals to report Results Date Description Value Details [id number] [REPLACED BY [facility]] CBC (INCLUDES DIFF/PLT) WBC 6.4 {K/CMM} Range: 3.7-10.4 RBC 4.25 {M/CMM} Range: 4.20-5.40 Hgb 13.2 g/dl Range: 12.0-16.0 Hct 39.5 % Range: 36.0-48.0 MCV 93.0 fL Range: 80.0-98.0 MCH 30.9 pg Range: 27.0-31.0 MCHC 33.3 g/dl Range: 32.0-36.0 RDW 14.6 % (Above high threshold) Range: 11.5-14.5 Platelet 177 {K/CMM} Range: 133-450 Mean Platelet Volume 10.5 fL (Above high threshold) Range: 7.4-10.4 :35 [QLH] Differential Segmented Neutrophils 62.3 % Range: 45.0-75.0 Monocytes 6.4 % Range: 2.0-12.0 Lymphocytes 28.4 % Range: 20.0-40.0 Eosinophils 2.3 % Range: 0.0-4.0 Basophils 0.6 % Range: 0.0-1.0 Segs-Bands # 4.0 {K/CMM} Range: 1.5-8.1 Lymphocytes # 1.8 {K/CMM} Range: 1.0-5.5 Monocytes # 0.4 {K/CMM} Range: 0.0-0.8 Eosinophils # 0.1 {K/CMM} Range: 0.0-0.5 :35 [QL] VITAMIN D, 25-HYDROXY, LC/MS/MS Vitamin D, 25-OH, Total 26.6 ng/ml (Below low threshold) Range: 30.0-100.0 Comments: Reference range is based on recommendations in the [employer] Clinical Practice Guideline (J Clin Endocrinol [id number];96:3274-2627) :35 [QL] HEMOGLOBIN A1c Hemoglobin A1c 6.8 % (Above high threshold) Range: <=5.6 :35 [QL] PTH, INTACT (WITHOUT CALCIUM) Parathyroid Hormone Intact 77.8 pg/ml Range: 18.4-80.1 :35 [QL] CMP W/EGFR Sodium Level 144 {mEq/l} Range: 135-145 Potassium Level 3.9 {mEq/l} Range: 3.5-5.1 Chloride Level 105 {mEq/l} Range: 95-109 Carbon Dioxide 30 {mEq/l} Range: 24-32 AGAP 12.9 {mEq/l} Range: 10.0-20.0 Glucose Lvl 132 mg/dl (Above high threshold) Range: 70-99 Comments: Adult reference range values reflect the clinical guidelinesof the [place] [employer]. Creatinine Lvl 0.50 mg/dl Range: 0.50-1.40 Blood Urea Nitrogen 13 mg/dl Range: 7-22 BUN/Creatinine Ratio 26 (Above high threshold) Range: 6-25 Total Protein 6.7 g/dl Range: 6.4-8.4 Albumin Lvl 3.5 g/dl Range: 3.5-5.0 Globulin 3.2 g/dl Range: 2.7-4.2 A/G Ratio 1.1 Range: 0.7-1.6 Calcium Level Total 9.1 mg/dl Range: 8.5-10.5 ALT 19 u/l Range: 0-65 AST 12 u/l Range: 0-37 Alk Phos 107 u/l Range: 39-136 Bili Total 0.5 mg/dl Range: 0.2-1.3 eGFR 103 {ML/MIN/1.7} Comments: The eGFR is calculated using the CKD-EPI formula. In most young, healthyindividuals the eGFR will be >90 mL/min/1.73m2. The eGFR declines with age. AneGFR of 60-89 may be normal in some populations, particularly the elderly, forwhom the CKD-EPI formula has not been extensively validated. Use of the eGFR isnot recommended in the following populations:Individuals with unstable creatinine concentrations, including patients and those with serious co-morbid conditions.Patients with extremes in muscle mass or diet.The data above are obtained from the National Kidney Disease Education Program(NKDEP) which additionally recommends that when the eGFR is used in patientswith extremes of body mass index for purposes of drug dosing, the eGFR shouldbe multiplied by the estimated BMI. [id number]:35 [QLH] IRON AND TOTAL IRON BINDING CAPACITY Iron 53 ug/dL Range: 30-160 % Satur Fe 17 % Range: 12-57 TIBC 304 ug/dL Range: 228-428 UIBC 251 ug/dL Range: 110-370 0-Qlz-[id number]:35 [QLH] LIPID PANEL Chol 165 mg/dl Range: <=199 Trig 179 mg/dl (Above high threshold) Range: <=149 HDL Cholesterol 57 mg/dl (Below low threshold) Range: >=61 CHD Risk 2.89 (Below low threshold) Range: 3.90-5.80 LDL 72 mg/dl Range: <=99 VLDL 36 3-Jpa-[id number]:35 [QLH] VITAMIN B12 Vitamin B12 Level 355 pg/ml Range: 254-1320 :35 [QLH] TSH, 3RD GENERATION W/REFLEX TO FT4 TSH 0.906 {uIU/ml} Range: 0.360-3.740 4-Wpq-130886:35 [QLH] FOLATE, SERUM Folate Level 59.5 ng/ml Range: >=3.0 :35 [H] Vit A Vitamin A Level 45.1 ug/dL Range: 22.0-69.5 Comments: Reference intervals for vitamin A determined from [facility] studies. Individuals with vitamin A less than 20ug/dL are considered vitamin A deficient and those withserum concentrations less than 10 ug/dL are consideredseverely deficient.This test was developed and its performance characteristicsdetermined by [employer]. It has not been cleared orapproved by the Food and Drug Administration.Performed At: [address] [id number] Dominguez MD Ph:[phone] 3-Chn-990464:35 [QLH] VITAMIN B1, WHOLE BLOOD Vitamin B1 Level 128.6 nmol/L Range: 66.5-200.0 Comments: This test was developed and its performance characteristicsdetermined by [employer]. It has not been cleared orapproved by the Food and Drug Administration.Performed At: [address] [id number] Dominguez MD Ph:[phone] 2-Mlo-080056:35 [H] Vitamin E Lvl Alpha-Tocopherol 12.3 mg/L Range: 9.0-29.0 Comments: This test was developed and its performance characteristicsdetermined by [email or web address]. It has not been cleared orapproved by the Food and Drug Administration. Gamma-Tocopherol 1.9 mg/L Range: 0.5-4.9 Comments: This test was developed and its performance characteristicsdetermined by [employer]. It has not been cleared orapproved by the Food and Drug Administration.Reference intervals for alpha and gamma-tocopheroldetermined from National Health and Nutrition ExaminationSurvey, 0414-0790. Individuals with alpha-tocopherol levelsless than 5.0 mg/L are considered vitamin E deficient.Performed At: [facility] [id number] [place], [place] [id number] Sanjai MD Ph:[phone] Plan of Care Name Dates Details Planned Observations Planned Goals not documented Planned Encounters Appointment; HOLGER LU M.D. On: 25-Sep-2018 16:15 Instructions Name Dates Details Instructions not documented Encounters Appointment; HOLGER LU M.D. Encounter Diagnosis: Problem not documented On: 06-Sep-2016 13:45 Appointment; [address] Encounter Diagnosis: Problem not documented On: 13-Sep-2016 15:00 Appointment; [address] Encounter Diagnosis: Problem not documented On: 13-Oct-2016 12:00 Appointment; [address] Encounter Diagnosis: Problem not documented On: 17-Nov-2016 12:00 Appointment; [address] Encounter Diagnosis: Problem not documented On: 01-Jan-2017 15:00 Appointment; [address] Encounter Diagnosis: Problem not documented On: 09-Feb-2017 10:00 Appointment; [address] Encounter Diagnosis: Problem not documented On: 20-Mar-2017 9:15 Appointment; HOLGER LU M.D. Encounter Diagnosis: Problem not documented On: 20-Feb-2018 15:00 Appointment; [address] Encounter Diagnosis: Problem not documented On: 25-Mar-2018 14:30 Appointment; HOLGER LU M.D. Encounter Diagnosis: Problem not documented On: 03-Apr-2018 8:30 Appointment; HOLGER LU M.D. Encounter Diagnosis: Problem not documented On: 09-Apr-2018 16:00 Appointment; HOLGER LU M.D. Encounter Diagnosis: Problem not documented On: 24-Apr-2018 14:30 Appointment; HOLGER LU M.D. Encounter Diagnosis: Problem not documented On: 26-Jun-2018 14:30
--- NOTE | 2018-11-18 23:08 | Diagnostic Imaging Report ---
History:Fall Comparison studies: None Technique: Axial images were obtained from the skull base to the vertex. Coronal and sagittal images reconstructed from the axial data. Dose modulation, iterative reconstruction, and/or weight based adjustment of the mA/kV was utilized to reduce the radiation dose to as low as reasonably achievable. Intravenous contrast: None Findings: Scalp/skull: No abnormalities. Extra-axial spaces: No masses. No fluid collections. Brain sulci: Mildly prominent. Ventricles: Mild compensatory dilatation. No hydrocephalus. Parenchyma: Scattered, ill defined hypodensities in the supratentorial white matter are small vessel ischemic changes. No masses, hemorrhage, acute or chronic cortical vascular insults. Sellar/suprasellar region: No abnormalities. Craniocervical junction: Patent foramen magnum. No Chiari one malformation. Incidental findings: Subtle atherosclerotic calcifications in the carotid siphons . Impression: No acute abnormalities. Chronic findings: 1. Mild generalized volume loss. 2. Moderate supratentorial white matter small vessel ischemic changes. Signed by: Dr. Neptali Orta M.D. on 11/18/2018 11:05 PM
--- NOTE | 2018-11-18 23:11 | Diagnostic Imaging Report ---
History: Trauma Comparison studies: None Technique: Axial images were obtained through the cervical region.. Coronal and sagittal images reconstructed from the axial data. Dose modulation, iterative reconstruction, and/or weight based adjustment of the mA/kV was utilized to reduce the radiation dose to as low as reasonably achievable. Intravenous contrast: None Findings: Fractures: None. Soft tissues: No gross abnormalities. Atlantoaxial articulation: Moderately degenerated. Alignment: Normal lordosis. No scoliosis. Cervicomedullary junction: No abnormalities. The foramen magnum is patent. Vertebrae: No infection or neoplasm. Degenerative changes: Mildly degenerated discs from C4 through T1, worse at C6-C7. Mild facet arthrosis throughout the cervical region, worse on the left at C3-4. Foraminal stenosis mild right at C5-6, severe left at C6-7 due to facet and uncovertebral arthrosis. Superimposed moderate left spinal canal stenosis at C6-7 due to a disc osteophyte complex. IMPRESSION: 1. No acute abnormalities. No fracture 2. Cannot adequately evaluate for ligament, spinal cord and or vascular abnormalities. 3. Degenerative spinal canal and foraminal stenosis mostly at C6-C7 as described. Signed by: Dr. Neptali Orta M.D. on 11/18/2018 11:08 PM
== END 2018-11-19 | disposition home or self-care (01) ==
LOC: ER 21:31
DX: S01.01XA Laceration without foreign body of scalp, initial encounter (principal); W01.0XXA Fall on same level from slipping, tripping and stumbling without subsequent striking against object, initial encounter; Y92.008 Other place in unspecified non-institutional (private) residence as the place of occurrence of the external cause; M06.9 Rheumatoid arthritis, unspecified; M48.02 Spinal stenosis, cervical region
CPT/HCPCS: 70450; 72125; 99283

== ENCOUNTER 2019-07-06 23:56 | Emergency (ER) | payer BC ==
[~2019-07-06] VITALS: Ht 172.7 cm; Wt 102.1 kg
[2019-07-07 01:50] LABS: BASOPHILS % 0.6 % (0.0-1.0); EOSINOPHILS # (AUTO) 0.1 (0.0-0.4); EOSINOPHILS % 2.7 % (0.0-6.0); HEMOGLOBIN 14.2 g/dL (12.0-16.0); LYMPHOCYTES # (AUTO) 1.9 (1.0-3.2); LYMPHOCYTES % 38.2 % (18.0-39.1); MEAN CORPUSCULAR HEMOGLOBIN 30.4 pg (28-32); MEAN CORPUSCULAR HGB CONC 32.3 g/dL (31-35); MEAN CORPUSCULAR VOLUME 94.2 fL (81-99); MONOCYTES # (AUTO) 0.4 (0.2-0.8); MONOCYTES % 8.3 % (4.4-11.3); NEUTROPHILS # (AUTO) 2.4 (2.1-6.9); PLATELET COUNT 116 x10e3/uL (140-360); RED BLOOD COUNT 4.67 x10e6/uL (3.6-5.1); RED CELL DISTRIBUTION WIDTH 14.1 % (11.7-14.4)
[2019-07-07 02:11] LABS: ANION GAP 14.9 mmol/L (8-16); BLOOD UREA NITROGEN 13 mg/dL (7-26); BUN/CREATININE RATIO 19 (6-25); CALCIUM 9.5 mg/dL (8.4-10.2); CARBON DIOXIDE 23 mmol/L (22-29); CHLORIDE 110 mmol/L (98-107); CREATININE, SERUM 0.68 mg/dL (0.57-1.11); EST GLOMERULAR FILTRATION RATE > 60 ML/MIN (60-); GLUCOSE 106 mg/dL (74-118); POTASSIUM 3.9 mmol/L (3.5-5.1); SODIUM 144 mmol/L (136-145)
[2019-07-07 02:51] VITALS: BP 132/73
== END 2019-07-07 02:40 | disposition home or self-care (01) ==
LOC: ER 23:56
DX: R20.2 Paresthesia of skin (principal); I10 Essential (primary) hypertension; E11.9 Type 2 diabetes mellitus without complications; E78.5 Hyperlipidemia, unspecified; Z98.84 Bariatric surgery status; Z85.89 Personal history of malignant neoplasm of other organs and systems
CPT/HCPCS: 36415; 80048; 83735; 85025; 99283

== ENCOUNTER 2022-05-09 16:42 | Inpatient (IN) | payer OTHER, MEDICARE ==
[2022-05-09] VITALS (10 sets, daily range): BP systolic 96–106; BP diastolic 48–58
[~2022-05-09] VITALS: Ht 172.7 cm; Wt 99.5 kg
[~2022-05-09 16:42] MED LIST changes: +VECURONIUM BROMIDE FOR INJ 20 MG VIAL ONE; +WATER STERILE 10 ML VIAL ONE
[2022-05-09] MEDS ORDERED: SODIUM CHLORIDE 0.9% 1000ML 1,000 ML IV STA ×3 (17:04→19:27)
[2022-05-09] MEDS ORDERED: GLUCAGON FOR INJ 1 MG VIAL IV ONE (17:15)
[2022-05-09] MEDS ORDERED: SODIUM CHLORIDE 0.9% 1000ML 1,000 ML ONE (17:28)
[2022-05-09 17:29] LABS: BASOPHILS % 0.3 % (0.0-1.0); EOSINOPHILS # (AUTO) 0.1 (0.0-0.4); EOSINOPHILS % 0.9 % (0.0-6.0); HEMOGLOBIN 12.3 g/dL (12.0-16.0); LYMPHOCYTES # (AUTO) 1.6 (1.0-3.2); LYMPHOCYTES % 25.9 % (18.0-39.1); MEAN CORPUSCULAR HEMOGLOBIN 30.3 pg (28-32); MEAN CORPUSCULAR HGB CONC 29.3 g/dL (31-35); MEAN CORPUSCULAR VOLUME 103.4 fL (81-99); MONOCYTES # (AUTO) 0.4 (0.2-0.8); NEUTROPHILS # (AUTO) 4.2 (2.1-6.9); NEUTROPHILS % 66.6 % (38.7-80.0); PLATELET COUNT 121 x10e3/uL (140-360); RED BLOOD COUNT 4.06 x10e6/uL (3.6-5.1); RED CELL DISTRIBUTION WIDTH 17.1 % (11.7-14.4)
[2022-05-09 17:33] LABS: INR 1.01; PROTHROMBIN TIME 13.5 seconds (11.9-14.5)
[2022-05-09 17:34] LABS: PARTIAL THROMBOPLASTIN TIME 40.4 seconds (23.8-35.5)
[2022-05-09 17:44] LABS: ALANINE AMINOTRANSFERASE 33 IU/L (0-55); ALBUMIN/GLOBULIN RATIO 0.6 (0.8-2.0); ALKALINE PHOSPHATASE 140 IU/L (40-150); BLOOD UREA NITROGEN 26 mg/dL (7-26); BUN/CREATININE RATIO 21 (6-25); CALCIUM 9.6 mg/dL (8.4-10.2); CARBON DIOXIDE 23 mmol/L (22-29); CHLORIDE 108 mmol/L (98-107); CREATINE KINASE 25 IU/L (29-168); CREATININE, SERUM 1.21 mg/dL (0.57-1.11); GLUCOSE 84 mg/dL (74-118); MAGNESIUM 2.1 MG/DL (1.3-2.1); SODIUM 141 mmol/L (136-145)
[2022-05-09 17:47] LABS: CLARITY,URINE SL CLOUDY (CLEAR); COLOR,URINE YELLOW (YELLOW); KETONES,URINE NEGATIVE (NEGATIVE); LEUKOCYTE ESTERASE ,URINE NEGATIVE (NEGATIVE); NITRITE,URINE NEGATIVE (NEGATIVE); PROTEIN,URINE DIPSTICK NEGATIVE (NEGATIVE); URINE UROBILINOGEN 0.2 mg/dL (0.2 - 1)
[2022-05-09] MEDS ORDERED: DEXTROSE 50% SYRINGE 50 ML IV STA (17:49)
[2022-05-09 17:57] LABS: BACTERIA,URINE FEW /HPF; WBC,URINE (MAN) 0-5 /HPF (0-5)
[2022-05-09] MEDS ORDERED: SODIUM BICARBONATE 8.4% INJ 50 ML SYR IV STA (17:59)
[2022-05-09] MEDS ORDERED: CALCIUM GLUC 1 G/50 ML NACL 50 ML IV ONE (18:00)
[2022-05-09] MEDS ORDERED: SODIUM BICARBONATE 8.4% INJ 50 ML SYR IV ONE (18:00)
[2022-05-09] MEDS ORDERED: INSULIN REGULAR, HUMAN 100 UNIT/1 ML IV ONE (18:00)
[2022-05-09 18:03] LABS: THYROID STIMULATING HORMONE 5.007 uIU/mL (0.350-4.940)
[2022-05-09] MEDS ORDERED: ALBUTEROL SULF 0.083% NEB SOLN 3 ML NEB NEB STA (18:07)
[2022-05-09] MEDS ORDERED: ATROPINE SULFATE 1 MG/ML VIAL IV PRN ×2 (18:30→22:15)
[2022-05-09] MEDS: SODIUM CHLORIDE 0.9% 1000ML 1,000 ML IV SCH (18:30)
[2022-05-09] MEDS ORDERED: THIAMINE HCL INJ 100 MG/ML 2ML VIAL IV ONE (18:30)
[2022-05-09] MEDS ORDERED: HYDROCORTISONE SOD SUCCINATE 100 MG VIAL IV ONE (18:30)
[2022-05-09] MEDS ORDERED: SODIUM BICARBONATE 8.4% SYRING 50 ML ONE (18:50)
[2022-05-09] MEDS ORDERED: ATROPINE SULFATE 1 MG/ML VIAL ONE (19:06)
[2022-05-09] MEDS ORDERED: GLUCAGON FOR INJ 1 MG VIAL ONE (19:17)
[2022-05-09] MEDS ORDERED: SODIUM CHLORIDE 0.9% 1000ML 1,000 ML IV ONE (19:45)
[2022-05-09] MEDS ORDERED: ONDANSETRON HCL INJ 2MG/ML 2ML 2 MG/ML VIAL IV PRN (22:30)
[2022-05-09] MEDS ORDERED: DOCUSATE SODIUM 100 MG CAP PO PRN (22:30)
[2022-05-09] MEDS ORDERED: GUAIFENESIN/DEXTROMETHORPHAN LIQD 5 ML UDC PO PRN (22:30)
[2022-05-09] MEDS ORDERED: HYDRALAZINE HCL 20 MG/ML VIAL IV PRN (22:30)
[2022-05-09] MEDS ORDERED: Vancomycin IV 1 GM in SODIUM CHLORIDE 0.9% 250ML 250 ML IV ONE (22:45)
[2022-05-09] MEDS ORDERED: SOD POLYSTYRENE SULFONATE SUSP 15 GM/60 ML BTL PO ONE (22:45)
[2022-05-09] MEDS ORDERED: DEXTROSE 50% SYRINGE 50 ML IV PRN (22:45)
[2022-05-10] VITALS (83 sets, daily range): BP systolic 74–153; BP diastolic 37–111
[2022-05-10] MEDS ORDERED: IOPAMIDOL 370 MG/ML 100 ML INFUS..BTL INJ ONE (00:28)
[2022-05-10 00:34] LABS: CREATINE KINASE 22 IU/L (29-168)
[2022-05-10] MEDS: IPRATROPIUM BROMIDE 0.02% 2.5 ML NEB NEB SCH ×4 (00:50→19:51)
[2022-05-10] MEDS: SODIUM CHLORIDE 0.9% 1000ML 1,000 ML IV SCH ×3 (05:01→20:56)
[2022-05-10] MEDS ORDERED: HYDROCORTISONE SOD SUCCINATE 100 MG VIAL IV SCH (06:00)
[2022-05-10 07:01] LABS: BASOPHILS % 0.1 % (0.0-1.0); EOSINOPHILS % 0.1 % (0.0-6.0); HEMATOCRIT 39.6 % (34.2-44.1); HEMOGLOBIN 11.6 g/dL (12.0-16.0); LYMPHOCYTES # (AUTO) 0.8 (1.0-3.2); LYMPHOCYTES % 5.2 % (18.0-39.1); MEAN CORPUSCULAR HEMOGLOBIN 30.9 pg (28-32); MEAN CORPUSCULAR HGB CONC 29.3 g/dL (31-35); MEAN CORPUSCULAR VOLUME 105.6 fL (81-99); MONOCYTES % 6.2 % (4.4-11.3); NEUTROPHILS # (AUTO) 13.6 (2.1-6.9); NEUTROPHILS % 87.9 % (38.7-80.0); PLATELET COUNT 148 x10e3/uL (140-360); RED BLOOD COUNT 3.75 x10e6/uL (3.6-5.1); RED CELL DISTRIBUTION WIDTH 16.7 % (11.7-14.4)
[2022-05-10 07:25] LABS: ALBUMIN 2.6 g/dL (3.5-5.0); ALBUMIN/GLOBULIN RATIO 0.5 (0.8-2.0); ANION GAP 15.7 mmol/L (8-16); CALCIUM 8.6 mg/dL (8.4-10.2); CHOL/HDL RATIO 2.2 (3.0-3.6); CREATININE, SERUM 1.11 mg/dL (0.57-1.11); POTASSIUM 5.7 mmol/L (3.5-5.1)
[2022-05-10 08:03] LABS: CREATINE KINASE 21 IU/L (29-168)
[2022-05-10 08:26] LABS: FREE THYROXINE INDEX 1.8634 (1.4-3.8); THYROID STIMULATING HORMONE 1.374 uIU/mL (0.350-4.940)
[2022-05-10] MEDS: THIAMINE HCL 100 MG TAB PO SCH (09:00)
[2022-05-10] MEDS: ASPIRIN 81 MG CHEW TAB PO SCH (09:00)
[2022-05-10] MEDS: MULTIVITAMINS/MINERALS TAB PO SCH (09:00)
[2022-05-10 09:21] LABS: ABG PH 7.15 (7.35-7.45)
[2022-05-10 09:22] LABS: ABG HCO3 28 mmol/L (22-26); ABG PCO2 80 mmHg (35-45); ABG PO2 188 mmHg (80-105); ABG TCO2 30
[2022-05-10] MEDS ORDERED: NOREPINEPHRINE 8 MG/D5W 250 ML 250 ML IV SCH (10:15)
[2022-05-10] MEDS: DEXMEDETOMIDINE 400MCG/NS100ML 100 ML IV PRN (10:35)
[2022-05-10] MEDS ORDERED: SODIUM CHLORIDE 0.9% 1000ML 1,000 ML ONE (10:57)
[2022-05-10] MEDS ORDERED: ALBUMIN 25% 25GM 100ML 0.25 GM/ML BTL IV ONE (11:00)
[2022-05-10] MEDS: LINEZOLID 600 MG/D5W 300ML 300 ML IV SCH ×2 (11:13→22:24)
[2022-05-10] MEDS ORDERED: FUROSEMIDE INJ 10 MG/ML 2 ML VIAL IV ONE (11:30)
[2022-05-10] MEDS: PROPOFOL IV EMULSION 10MG/ML 100 ML IV PRN ×2 (13:44→21:51)
[2022-05-10] MEDS: INSULIN REGULAR, HUMAN 100 UNIT/1 ML SQ SCH ×4 (13:53→20:56)
[2022-05-10 14:18] LABS: ABG HCO3 25 mmol/L (22-26); ABG PCO2 32 mmHg (35-45); ABG PO2 69 mmHg (80-105); ABG TCO2 26
[2022-05-10 15:35] LABS: CREATINE KINASE MB 0.6 ng/mL (0-5.0)
[2022-05-10] MEDS: ENOXAPARIN SOD INJ 40 MG/0.4 ML SYR SC SCH (18:12)
[2022-05-10] MEDS: FUROSEMIDE INJ 10 MG/ML 2 ML VIAL IV SCH (20:55)
[2022-05-11] VITALS (91 sets, daily range): BP systolic 82–178; BP diastolic 52–105
[2022-05-11] MEDS: IPRATROPIUM BROMIDE 0.02% 2.5 ML NEB NEB SCH ×4 (01:30→18:22)
[2022-05-11] MEDS: PROPOFOL IV EMULSION 10MG/ML 100 ML IV PRN ×6 (03:24→23:35)
[2022-05-11] MEDS: DEXMEDETOMIDINE 400MCG/NS100ML 100 ML IV PRN ×2 (03:25→19:42)
[2022-05-11] MEDS: SODIUM CHLORIDE 0.9% 1000ML 1,000 ML IV SCH ×2 (05:30→13:19)
[2022-05-11 06:51] LABS: BASOPHILS % 0.2 % (0.0-1.0); EOSINOPHILS # (AUTO) 0.1 (0.0-0.4); EOSINOPHILS % 1.1 % (0.0-6.0); HEMATOCRIT 33.5 % (34.2-44.1); LYMPHOCYTES # (AUTO) 1.7 (1.0-3.2); LYMPHOCYTES % 19.1 % (18.0-39.1); MEAN CORPUSCULAR HEMOGLOBIN 30.5 pg (28-32); MEAN CORPUSCULAR HGB CONC 29.9 g/dL (31-35); MEAN CORPUSCULAR VOLUME 102.1 fL (81-99); MONOCYTES # (AUTO) 0.6 (0.2-0.8); MONOCYTES % 6.3 % (4.4-11.3); NEUTROPHILS # (AUTO) 6.3 (2.1-6.9); PLATELET COUNT 119 x10e3/uL (140-360); RED BLOOD COUNT 3.28 x10e6/uL (3.6-5.1); RED CELL DISTRIBUTION WIDTH 16.7 % (11.7-14.4)
[2022-05-11 07:14] LABS: ALBUMIN 2.1 g/dL (3.5-5.0); ALBUMIN/GLOBULIN RATIO 0.5 (0.8-2.0); ANION GAP 14.1 mmol/L (8-16); CALCIUM 8.5 mg/dL (8.4-10.2); CREATININE, SERUM 0.85 mg/dL (0.57-1.11); POTASSIUM 3.1 mmol/L (3.5-5.1)
[2022-05-11] MEDS: ALBUTEROL SULF 0.083% NEB SOLN 3 ML NEB NEB PRN ×2 (07:15→13:00)
[2022-05-11] MEDS: INSULIN REGULAR, HUMAN 100 UNIT/1 ML SQ SCH ×4 (08:22→21:00)
[2022-05-11] MEDS: FUROSEMIDE INJ 10 MG/ML 2 ML VIAL IV SCH ×2 (08:37→17:23)
[2022-05-11] MEDS: MULTIVITAMINS/MINERALS TAB PO SCH (08:38)
[2022-05-11] MEDS: ASPIRIN 81 MG CHEW TAB PO SCH (08:38)
[2022-05-11] MEDS: THIAMINE HCL 100 MG TAB PO SCH (08:38)
[2022-05-11 08:41] LABS: ABG HCO3 27 mmol/L (22-26); ABG PCO2 37 mmHg (35-45); ABG PH 7.47 (7.35-7.45); ABG PO2 96 mmHg (80-105); ABG TCO2 28
[2022-05-11] MEDS: POTASSIUM CHLORIDE 20MEQ/100ML 100 ML IV SCH ×2 (08:42→11:25)
[2022-05-11] MEDS ORDERED: ALBUMIN 25% 25GM 100ML 0.25 GM/ML BTL IV ONE (09:00)
[2022-05-11] MEDS: LINEZOLID 600 MG/D5W 300ML 300 ML IV SCH ×2 (10:00→22:26)
[2022-05-11] MEDS: ALBUMIN 25% 25GM 100ML 100 ML IV SCH ×2 (10:01→10:07)
[2022-05-11] MEDS: ENOXAPARIN SOD INJ 40 MG/0.4 ML SYR SC SCH (17:23)
[2022-05-11] MEDS ORDERED: POTASSIUM CHLORIDE 20 MEQ TAB CR PO ONE (17:47)
[2022-05-12] VITALS (46 sets, daily range): BP systolic 107–134; BP diastolic 51–68
[2022-05-12] MEDS: ALBUTEROL SULF 0.083% NEB SOLN 3 ML NEB NEB PRN (01:27)
[2022-05-12] MEDS: IPRATROPIUM BROMIDE 0.02% 2.5 ML NEB NEB SCH (01:27)
[2022-05-12] MEDS: SODIUM CHLORIDE 0.9% 1000ML 1,000 ML IV SCH (02:20)
[2022-05-12] MEDS: PROPOFOL IV EMULSION 10MG/ML 100 ML IV PRN ×2 (03:25→16:40)
[2022-05-12] MEDS ORDERED: FUROSEMIDE INJ 10 MG/ML 2 ML VIAL IV SCH (06:00)
[2022-05-12 06:56] LABS: BASOPHILS % 0.5 % (0.0-1.0); EOSINOPHILS # (AUTO) 0.1 (0.0-0.4); EOSINOPHILS % 1.6 % (0.0-6.0); HEMATOCRIT 29.7 % (34.2-44.1); HEMOGLOBIN 9.4 g/dL (12.0-16.0); LYMPHOCYTES # (AUTO) 1.2 (1.0-3.2); LYMPHOCYTES % 19.4 % (18.0-39.1); MEAN CORPUSCULAR HEMOGLOBIN 30.4 pg (28-32); MEAN CORPUSCULAR HGB CONC 31.6 g/dL (31-35); MEAN CORPUSCULAR VOLUME 96.1 fL (81-99); MONOCYTES # (AUTO) 0.5 (0.2-0.8); MONOCYTES % 7.2 % (4.4-11.3); NEUTROPHILS # (AUTO) 4.4 (2.1-6.9); NEUTROPHILS % 70.7 % (38.7-80.0); PLATELET COUNT 104 x10e3/uL (140-360); RED BLOOD COUNT 3.09 x10e6/uL (3.6-5.1)
[2022-05-12] MEDS: IPRATROPIUM BROMIDE 0.02% 2.5 ML NEB NEB PRN ×2 (07:14→19:00)
[2022-05-12 07:22] LABS: ALBUMIN 2.6 g/dL (3.5-5.0); ALBUMIN/GLOBULIN RATIO 0.6 (0.8-2.0); ANION GAP 13.6 mmol/L (8-16); CALCIUM 8.6 mg/dL (8.4-10.2); CREATININE, SERUM 0.76 mg/dL (0.57-1.11); POTASSIUM 3.6 mmol/L (3.5-5.1)
[2022-05-12] MEDS ORDERED: POTASSIUM CHLORIDE 20MEQ/100ML 200 ML IV ONE (07:45)
[2022-05-12] MEDS: LACTATED RINGER'S 1,000 ML INJ SCH ×2 (08:07→20:02)
[2022-05-12] MEDS: THIAMINE HCL 100 MG TAB PO SCH (08:11)
[2022-05-12] MEDS: ASPIRIN 81 MG CHEW TAB PO SCH (08:11)
[2022-05-12] MEDS: MULTIVITAMINS/MINERALS TAB PO SCH (08:12)
[2022-05-12] MEDS: INSULIN REGULAR, HUMAN 100 UNIT/1 ML SQ SCH ×4 (08:14→21:28)
[2022-05-12] MEDS ORDERED: POTASSIUM CHLORIDE 20 MEQ TAB CR PO SCH (09:00)
[2022-05-12 10:14] LABS: ABG HCO3 31 mmol/L (22-26); ABG PCO2 39 mmHg (35-45); ABG PH 7.51 (7.35-7.45); ABG PO2 90 mmHg (80-105); ABG TCO2 32
[2022-05-12] MEDS: ALBUTEROL/IPRATROPIUM 3 ML NEB INH PRN ×3 (11:05→19:00)
[2022-05-12] MEDS: DEXMEDETOMIDINE 400MCG/NS100ML 100 ML IV PRN (14:24)
[2022-05-12] MEDS: ENOXAPARIN SOD INJ 40 MG/0.4 ML SYR SC SCH (16:44)
[2022-05-13] VITALS (39 sets, daily range): BP systolic 116–152; BP diastolic 55–80
[2022-05-13] MEDS: PROPOFOL IV EMULSION 10MG/ML 100 ML IV PRN ×2 (00:15→06:02)
[2022-05-13] MEDS: ACETAMINOPHEN 325 MG TAB PO PRN (01:42)
[2022-05-13 06:45] LABS: BASOPHILS % 0.2 % (0.0-1.0); EOSINOPHILS # (AUTO) 0.1 (0.0-0.4); EOSINOPHILS % 1.5 % (0.0-6.0); HEMATOCRIT 31.8 % (34.2-44.1); HEMOGLOBIN 9.4 g/dL (12.0-16.0); LYMPHOCYTES # (AUTO) 1.3 (1.0-3.2); LYMPHOCYTES % 22.7 % (18.0-39.1); MEAN CORPUSCULAR HEMOGLOBIN 30.5 pg (28-32); MEAN CORPUSCULAR HGB CONC 29.6 g/dL (31-35); MEAN CORPUSCULAR VOLUME 103.2 fL (81-99); MONOCYTES # (AUTO) 0.4 (0.2-0.8); MONOCYTES % 6.8 % (4.4-11.3); NEUTROPHILS # (AUTO) 4.1 (2.1-6.9); NEUTROPHILS % 68.5 % (38.7-80.0); PLATELET COUNT 112 x10e3/uL (140-360); RED BLOOD COUNT 3.08 x10e6/uL (3.6-5.1); RED CELL DISTRIBUTION WIDTH 16.1 % (11.7-14.4)
[2022-05-13 07:04] LABS: ALBUMIN 2.5 g/dL (3.5-5.0); ALBUMIN/GLOBULIN RATIO 0.6 (0.8-2.0); ANION GAP 13.8 mmol/L (8-16); CALCIUM 8.4 mg/dL (8.4-10.2); CREATININE, SERUM 0.71 mg/dL (0.57-1.11); POTASSIUM 3.8 mmol/L (3.5-5.1)
[2022-05-13] MEDS: ASPIRIN 81 MG CHEW TAB PO SCH (08:28)
[2022-05-13] MEDS: MULTIVITAMINS/MINERALS TAB PO SCH (08:28)
[2022-05-13] MEDS: THIAMINE HCL 100 MG TAB PO SCH (08:28)
[2022-05-13] MEDS: NYSTATIN 15 GM POWDER UD BTL TOP SCH (08:28)
[2022-05-13] MEDS: INSULIN REGULAR, HUMAN 100 UNIT/1 ML SQ SCH ×4 (08:30→20:48)
[2022-05-13] MEDS: LACTATED RINGER'S 1,000 ML INJ SCH ×2 (08:40→20:45)
[2022-05-13 13:46] LABS: ABG HCO3 29 mmol/L (22-26); ABG PCO2 39 mmHg (35-45); ABG PH 7.49 (7.35-7.45); ABG PO2 111 mmHg (80-105); ABG TCO2 30
[2022-05-13 13:48] LABS: ABG HCO3 31 mmol/L (22-26); ABG PCO2 46 mmHg (35-45); ABG PH 7.44 (7.35-7.45); ABG PO2 115 mmHg (80-105); ABG TCO2 33
[2022-05-13] MEDS: ENOXAPARIN SOD INJ 40 MG/0.4 ML SYR SC SCH (16:45)
[2022-05-14] VITALS (42 sets, daily range): BP systolic 127–172; BP diastolic 69–95
[2022-05-14] MEDS: ACETAMINOPHEN 325 MG TAB PO PRN ×2 (01:55→20:26)
[2022-05-14] MEDS: MELATONIN 3 MG TAB PO PRN ×2 (01:55→20:25)
[2022-05-14 06:46] LABS: BASOPHILS % 0.5 % (0.0-1.0); EOSINOPHILS # (AUTO) 0.1 (0.0-0.4); EOSINOPHILS % 0.8 % (0.0-6.0); HEMATOCRIT 33.3 % (34.2-44.1); HEMOGLOBIN 10.8 g/dL (12.0-16.0); LYMPHOCYTES # (AUTO) 1.1 (1.0-3.2); LYMPHOCYTES % 13.8 % (18.0-39.1); MEAN CORPUSCULAR HEMOGLOBIN 30.9 pg (28-32); MEAN CORPUSCULAR HGB CONC 32.4 g/dL (31-35); MEAN CORPUSCULAR VOLUME 95.4 fL (81-99); MONOCYTES # (AUTO) 0.5 (0.2-0.8); MONOCYTES % 5.9 % (4.4-11.3); NEUTROPHILS # (AUTO) 6.2 (2.1-6.9); PLATELET COUNT 141 x10e3/uL (140-360); RED BLOOD COUNT 3.49 x10e6/uL (3.6-5.1); RED CELL DISTRIBUTION WIDTH 15.9 % (11.7-14.4)
[2022-05-14 07:09] LABS: ALBUMIN 2.4 g/dL (3.5-5.0); ALBUMIN/GLOBULIN RATIO 0.5 (0.8-2.0); ANION GAP 14.1 mmol/L (8-16); CALCIUM 8.8 mg/dL (8.4-10.2); CREATININE, SERUM 0.59 mg/dL (0.57-1.11); POTASSIUM 3.1 mmol/L (3.5-5.1)
[2022-05-14] MEDS: INSULIN REGULAR, HUMAN 100 UNIT/1 ML SQ SCH ×4 (07:32→20:35)
[2022-05-14] MEDS: ASPIRIN 81 MG CHEW TAB PO SCH (08:03)
[2022-05-14] MEDS: THIAMINE HCL 100 MG TAB PO SCH (08:03)
[2022-05-14] MEDS: MULTIVITAMINS/MINERALS TAB PO SCH (08:03)
[2022-05-14] MEDS: NYSTATIN 15 GM POWDER UD BTL TOP SCH (08:04)
[2022-05-14] MEDS ORDERED: POTASSIUM CHLORIDE 20MEQ/100ML 200 ML IV ONE (08:45)
[2022-05-14] MEDS ORDERED: PRAMIPEXOLE DIHYDROCHLORIDE 0.25 MG TAB PO PRN (08:45)
[2022-05-14] MEDS: PRAMIPEXOLE DIHYDROCHLORIDE 1 MG TAB PO PRN (09:17)
[2022-05-14] MEDS: ALBUTEROL/IPRATROPIUM 3 ML NEB INH PRN ×2 (13:10→19:20)
[2022-05-14] MEDS: ENOXAPARIN SOD INJ 40 MG/0.4 ML SYR SC SCH (16:32)
[2022-05-15] VITALS (24 sets, daily range): BP systolic 131–166; BP diastolic 78–106
[2022-05-15 06:41] LABS: BASOPHILS % 0.6 % (0.0-1.0); EOSINOPHILS # (AUTO) 0.1 (0.0-0.4); EOSINOPHILS % 1.1 % (0.0-6.0); HEMATOCRIT 34.9 % (34.2-44.1); HEMOGLOBIN 11.2 g/dL (12.0-16.0); LYMPHOCYTES # (AUTO) 1.1 (1.0-3.2); LYMPHOCYTES % 16.5 % (18.0-39.1); MEAN CORPUSCULAR HEMOGLOBIN 30.4 pg (28-32); MEAN CORPUSCULAR HGB CONC 32.1 g/dL (31-35); MEAN CORPUSCULAR VOLUME 94.8 fL (81-99); MONOCYTES # (AUTO) 0.5 (0.2-0.8); MONOCYTES % 7.6 % (4.4-11.3); NEUTROPHILS # (AUTO) 4.9 (2.1-6.9); NEUTROPHILS % 73.4 % (38.7-80.0); PLATELET COUNT 165 x10e3/uL (140-360); RED BLOOD COUNT 3.68 x10e6/uL (3.6-5.1); RED CELL DISTRIBUTION WIDTH 15.8 % (11.7-14.4)
[2022-05-15 07:13] LABS: ALBUMIN 2.3 g/dL (3.5-5.0); ALBUMIN/GLOBULIN RATIO 0.5 (0.8-2.0); ANION GAP 10.6 mmol/L (8-16); CALCIUM 8.7 mg/dL (8.4-10.2); CREATININE, SERUM 0.53 mg/dL (0.57-1.11); POTASSIUM 3.6 mmol/L (3.5-5.1)
[2022-05-15] MEDS: INSULIN REGULAR, HUMAN 100 UNIT/1 ML SQ SCH ×4 (09:32→20:46)
[2022-05-15] MEDS: POTASSIUM CHLORIDE 20MEQ/100ML 100 ML IV SCH ×2 (09:33→09:47)
[2022-05-15] MEDS: MULTIVITAMINS/MINERALS TAB PO SCH (09:35)
[2022-05-15] MEDS: ASPIRIN 81 MG CHEW TAB PO SCH (09:35)
[2022-05-15] MEDS: THIAMINE HCL 100 MG TAB PO SCH (09:35)
[2022-05-15] MEDS: PRAMIPEXOLE DIHYDROCHLORIDE 1 MG TAB PO PRN ×2 (09:36→17:21)
[2022-05-15] MEDS: NYSTATIN 15 GM POWDER UD BTL TOP SCH (10:09)
[2022-05-15] MEDS: AMLODIPINE BESYLATE 10 MG TAB PO SCH (12:03)
[2022-05-15] MEDS: ENOXAPARIN SOD INJ 40 MG/0.4 ML SYR SC SCH (16:51)
[2022-05-15] MEDS: MELATONIN 3 MG TAB PO PRN (20:42)
[2022-05-15] MEDS: ACETAMINOPHEN 325 MG TAB PO PRN (20:42)
[2022-05-16] VITALS (40 sets, daily range): BP systolic 119–159; BP diastolic 72–98
[2022-05-16 07:59] LABS: BASOPHILS % 0.5 % (0.0-1.0); EOSINOPHILS # (AUTO) 0.1 (0.0-0.4); EOSINOPHILS % 1.3 % (0.0-6.0); HEMATOCRIT 37.2 % (34.2-44.1); LYMPHOCYTES # (AUTO) 1.3 (1.0-3.2); LYMPHOCYTES % 15.7 % (18.0-39.1); MEAN CORPUSCULAR HEMOGLOBIN 30.1 pg (28-32); MEAN CORPUSCULAR HGB CONC 29.6 g/dL (31-35); MEAN CORPUSCULAR VOLUME 101.6 fL (81-99); MONOCYTES # (AUTO) 0.7 (0.2-0.8); MONOCYTES % 8.1 % (4.4-11.3); NEUTROPHILS # (AUTO) 6.2 (2.1-6.9); NEUTROPHILS % 73.8 % (38.7-80.0); PLATELET COUNT 217 x10e3/uL (140-360); RED BLOOD COUNT 3.66 x10e6/uL (3.6-5.1); RED CELL DISTRIBUTION WIDTH 15.3 % (11.7-14.4)
[2022-05-16] MEDS: INSULIN REGULAR, HUMAN 100 UNIT/1 ML SQ SCH ×4 (08:07→20:48)
[2022-05-16] MEDS: ASPIRIN 81 MG CHEW TAB PO SCH (08:08)
[2022-05-16] MEDS: MULTIVITAMINS/MINERALS TAB PO SCH (08:08)
[2022-05-16] MEDS: NYSTATIN 15 GM POWDER UD BTL TOP SCH (08:09)
[2022-05-16] MEDS: THIAMINE HCL 100 MG TAB PO SCH (08:09)
[2022-05-16] MEDS: AMLODIPINE BESYLATE 10 MG TAB PO SCH (08:09)
[2022-05-16 08:27] LABS: ALBUMIN 2.4 g/dL (3.5-5.0); ALBUMIN/GLOBULIN RATIO 0.5 (0.8-2.0); ANION GAP 12.5 mmol/L (8-16); CALCIUM 8.7 mg/dL (8.4-10.2); CREATININE, SERUM 0.48 mg/dL (0.57-1.11); POTASSIUM 3.5 mmol/L (3.5-5.1)
[2022-05-16] MEDS: LOSARTAN POTASSIUM 25 MG TAB PO SCH (10:53)
[2022-05-16] MEDS: PRAMIPEXOLE DIHYDROCHLORIDE 1 MG TAB PO PRN ×2 (10:57→20:47)
[2022-05-16] MEDS: ENOXAPARIN SOD INJ 40 MG/0.4 ML SYR SC SCH (18:01)
[2022-05-16] MEDS: MELATONIN 3 MG TAB PO PRN (20:47)
[2022-05-16] MEDS: ACETAMINOPHEN 325 MG TAB PO PRN (20:47)
[2022-05-17] VITALS (33 sets, daily range): BP systolic 123–162; BP diastolic 77–95
[2022-05-17 06:52] LABS: BASOPHILS % 0.4 % (0.0-1.0); EOSINOPHILS # (AUTO) 0.1 (0.0-0.4); EOSINOPHILS % 1.5 % (0.0-6.0); HEMATOCRIT 36.5 % (34.2-44.1); HEMOGLOBIN 10.7 g/dL (12.0-16.0); LYMPHOCYTES # (AUTO) 1.7 (1.0-3.2); LYMPHOCYTES % 18.6 % (18.0-39.1); MEAN CORPUSCULAR HEMOGLOBIN 29.5 pg (28-32); MEAN CORPUSCULAR HGB CONC 29.3 g/dL (31-35); MEAN CORPUSCULAR VOLUME 100.6 fL (81-99); MONOCYTES # (AUTO) 0.7 (0.2-0.8); MONOCYTES % 7.5 % (4.4-11.3); NEUTROPHILS # (AUTO) 6.4 (2.1-6.9); NEUTROPHILS % 71.6 % (38.7-80.0); PLATELET COUNT 274 x10e3/uL (140-360); RED BLOOD COUNT 3.63 x10e6/uL (3.6-5.1); RED CELL DISTRIBUTION WIDTH 15.5 % (11.7-14.4)
[2022-05-17 07:05] LABS: ALBUMIN 2.5 g/dL (3.5-5.0); ALBUMIN/GLOBULIN RATIO 0.6 (0.8-2.0); ANION GAP 12.1 mmol/L (8-16); CALCIUM 8.8 mg/dL (8.4-10.2); CREATININE, SERUM 0.53 mg/dL (0.57-1.11); POTASSIUM 3.1 mmol/L (3.5-5.1)
[2022-05-17 07:22] LABS: PHOSPHORUS 2.4 MG/DL (2.3-4.7)
[2022-05-17] MEDS: INSULIN REGULAR, HUMAN 100 UNIT/1 ML SQ SCH ×4 (07:58→21:18)
[2022-05-17] MEDS: NYSTATIN 15 GM POWDER UD BTL TOP SCH (08:00)
[2022-05-17] MEDS: AMLODIPINE BESYLATE 10 MG TAB PO SCH (08:00)
[2022-05-17] MEDS: MULTIVITAMINS/MINERALS TAB PO SCH (08:00)
[2022-05-17] MEDS: THIAMINE HCL 100 MG TAB PO SCH (08:00)
[2022-05-17] MEDS: LOSARTAN POTASSIUM 25 MG TAB PO SCH (08:01)
[2022-05-17] MEDS: ASPIRIN 81 MG CHEW TAB PO SCH (08:01)
[2022-05-17] MEDS ORDERED: POTASSIUM CHLORIDE 20MEQ/100ML 200 ML IV ONE (11:30)
[2022-05-17] MEDS: ENOXAPARIN SOD INJ 40 MG/0.4 ML SYR SC SCH (17:05)
[2022-05-17] MEDS: PRAMIPEXOLE DIHYDROCHLORIDE 1 MG TAB PO PRN (17:38)
[2022-05-18] VITALS (22 sets, daily range): BP systolic 109–159; BP diastolic 61–99
[2022-05-18 06:47] LABS: BASOPHILS # (AUTO) 0.1 (0.0-0.1); BASOPHILS % 0.8 % (0.0-1.0); EOSINOPHILS # (AUTO) 0.1 (0.0-0.4); EOSINOPHILS % 2.2 % (0.0-6.0); HEMATOCRIT 33.2 % (34.2-44.1); HEMOGLOBIN 10.4 g/dL (12.0-16.0); LYMPHOCYTES # (AUTO) 1.4 (1.0-3.2); LYMPHOCYTES % 22.3 % (18.0-39.1); MEAN CORPUSCULAR HEMOGLOBIN 30.1 pg (28-32); MEAN CORPUSCULAR HGB CONC 31.3 g/dL (31-35); MEAN CORPUSCULAR VOLUME 96.2 fL (81-99); MONOCYTES # (AUTO) 0.6 (0.2-0.8); NEUTROPHILS # (AUTO) 4.1 (2.1-6.9); NEUTROPHILS % 65.4 % (38.7-80.0); PLATELET COUNT 311 x10e3/uL (140-360); RED BLOOD COUNT 3.45 x10e6/uL (3.6-5.1); RED CELL DISTRIBUTION WIDTH 15.9 % (11.7-14.4)
[2022-05-18 07:07] LABS: ALBUMIN 2.4 g/dL (3.5-5.0); ALBUMIN/GLOBULIN RATIO 0.5 (0.8-2.0); ANION GAP 12.7 mmol/L (8-16); CALCIUM 8.6 mg/dL (8.4-10.2); CREATININE, SERUM 0.5 mg/dL (0.57-1.11); POTASSIUM 3.7 mmol/L (3.5-5.1)
[2022-05-18] MEDS: INSULIN REGULAR, HUMAN 100 UNIT/1 ML SQ SCH ×4 (07:24→21:00)
[2022-05-18] MEDS: AMLODIPINE BESYLATE 10 MG TAB PO SCH (08:00)
[2022-05-18] MEDS: ASPIRIN 81 MG CHEW TAB PO SCH (08:01)
[2022-05-18] MEDS: PRAMIPEXOLE DIHYDROCHLORIDE 1 MG TAB PO PRN (08:01)
[2022-05-18] MEDS: LOSARTAN POTASSIUM 25 MG TAB PO SCH (08:01)
[2022-05-18] MEDS: MULTIVITAMINS/MINERALS TAB PO SCH (08:01)
[2022-05-18] MEDS: THIAMINE HCL 100 MG TAB PO SCH (08:01)
[2022-05-18] MEDS: ENOXAPARIN SOD INJ 40 MG/0.4 ML SYR SC SCH (11:49)
[2022-05-18] MEDS ORDERED: METOCLOPRAMIDE HCL 10 MG/2ML VIAL ONE (12:42)
[2022-05-18] MEDS ORDERED: ONDANSETRON HCL INJ 2MG/ML 2ML 2 MG/ML VIAL ONE (12:42)
[2022-05-18] MEDS ORDERED: PROPOFOL IV EMULSION 10 MG/ML 20 ML VIAL ONE (12:42)
[2022-05-18] MEDS ORDERED: POVIDONE IODINE 0.05% 0.05 % ML PO ONE (12:42)
[2022-05-18] MEDS ORDERED: LIDOCAINE HCL 2% LOCAL INJ 5 ML SDV VIAL INJ ONE (12:42)
[2022-05-18] MEDS ORDERED: DEXAMETHASONE SOD PHOS INJ 4 MG/ML SDV ONE (12:42)
[2022-05-18] MEDS: ALBUTEROL/IPRATROPIUM 3 ML NEB INH PRN (15:30)
[2022-05-18] MEDS: NYSTATIN 15 GM POWDER UD BTL TOP SCH (16:30)
[2022-05-18] MEDS ORDERED: KETOROLAC TROMETHAMINE 30 MG/ML VIAL IV ONE (17:41)
[2022-05-19] VITALS (24 sets, daily range): BP systolic 120–164; BP diastolic 59–91
[2022-05-19] MEDS ORDERED: KETOROLAC TROMETHAMINE 30 MG/ML VIAL IV PRN
[2022-05-19 06:59] LABS: BASOPHILS % 0.3 % (0.0-1.0); HEMATOCRIT 35.3 % (34.2-44.1); HEMOGLOBIN 10.4 g/dL (12.0-16.0); LYMPHOCYTES # (AUTO) 1.2 (1.0-3.2); LYMPHOCYTES % 17.4 % (18.0-39.1); MEAN CORPUSCULAR HEMOGLOBIN 30.1 pg (28-32); MEAN CORPUSCULAR HGB CONC 29.5 g/dL (31-35); MEAN CORPUSCULAR VOLUME 102.3 fL (81-99); MONOCYTES # (AUTO) 0.4 (0.2-0.8); MONOCYTES % 6.1 % (4.4-11.3); NEUTROPHILS # (AUTO) 5.2 (2.1-6.9); NEUTROPHILS % 76.1 % (38.7-80.0); PLATELET COUNT 355 x10e3/uL (140-360); RED BLOOD COUNT 3.45 x10e6/uL (3.6-5.1); RED CELL DISTRIBUTION WIDTH 15.2 % (11.7-14.4)
[2022-05-19 07:20] LABS: ALBUMIN 2.7 g/dL (3.5-5.0); ALBUMIN/GLOBULIN RATIO 0.6 (0.8-2.0); CREATININE, SERUM 0.53 mg/dL (0.57-1.11)
[2022-05-19] MEDS: INSULIN REGULAR, HUMAN 100 UNIT/1 ML SQ SCH ×4 (07:30→20:38)
[2022-05-19] MEDS: AMLODIPINE BESYLATE 10 MG TAB PO SCH (08:08)
[2022-05-19] MEDS: LOSARTAN POTASSIUM 25 MG TAB PO SCH (08:08)
[2022-05-19] MEDS: NYSTATIN 15 GM POWDER UD BTL TOP SCH ×2 (08:08→19:39)
[2022-05-19] MEDS: THIAMINE HCL 100 MG TAB PO SCH (08:08)
[2022-05-19] MEDS: MULTIVITAMINS/MINERALS TAB PO SCH (08:08)
[2022-05-19] MEDS: ASPIRIN 81 MG CHEW TAB PO SCH (08:08)
[2022-05-19 13:43] LABS: INR 1.13; PROTHROMBIN TIME 14.7 seconds (11.9-14.5)
[2022-05-19] MEDS: HYDROMORPHONE 1MG/1ML INJ IV PRN ×2 (14:20→20:25)
[2022-05-19] MEDS: ENOXAPARIN SOD INJ 40 MG/0.4 ML SYR SC SCH (17:31)
[2022-05-20] VITALS (15 sets, daily range): BP systolic 115–169; BP diastolic 65–95
[2022-05-20 06:43] LABS: BASOPHILS # (AUTO) 0.1 (0.0-0.1); BASOPHILS % 0.9 % (0.0-1.0); EOSINOPHILS # (AUTO) 0.2 (0.0-0.4); EOSINOPHILS % 2.9 % (0.0-6.0); HEMATOCRIT 33.4 % (34.2-44.1); HEMOGLOBIN 10.5 g/dL (12.0-16.0); LYMPHOCYTES # (AUTO) 1.6 (1.0-3.2); LYMPHOCYTES % 29.3 % (18.0-39.1); MEAN CORPUSCULAR HGB CONC 31.4 g/dL (31-35); MEAN CORPUSCULAR VOLUME 95.4 fL (81-99); MONOCYTES # (AUTO) 0.4 (0.2-0.8); MONOCYTES % 6.7 % (4.4-11.3); NEUTROPHILS # (AUTO) 3.3 (2.1-6.9); NEUTROPHILS % 59.8 % (38.7-80.0); PLATELET COUNT 383 x10e3/uL (140-360); RED CELL DISTRIBUTION WIDTH 15.9 % (11.7-14.4)
[2022-05-20 07:06] LABS: ALBUMIN 2.7 g/dL (3.5-5.0); ALBUMIN/GLOBULIN RATIO 0.6 (0.8-2.0); ANION GAP 14.3 mmol/L (8-16); CALCIUM 8.5 mg/dL (8.4-10.2); CREATININE, SERUM 0.49 mg/dL (0.57-1.11); POTASSIUM 3.3 mmol/L (3.5-5.1)
[2022-05-20] MEDS: INSULIN REGULAR, HUMAN 100 UNIT/1 ML SQ SCH ×4 (07:30→20:03)
[2022-05-20] MEDS: MULTIVITAMINS/MINERALS TAB PO SCH (09:00)
[2022-05-20] MEDS: AMLODIPINE BESYLATE 10 MG TAB PO SCH (09:00)
[2022-05-20] MEDS: THIAMINE HCL 100 MG TAB PO SCH (09:00)
[2022-05-20] MEDS: LOSARTAN POTASSIUM 25 MG TAB PO SCH (09:00)
[2022-05-20] MEDS: POTASSIUM CHLORIDE 20MEQ/100ML 100 ML IV SCH ×2 (09:02→12:23)
[2022-05-20] MEDS: HYDROMORPHONE 1MG/1ML INJ IV PRN (09:54)
[2022-05-20] MEDS ORDERED: SODIUM CHLORIDE 0.9% 250ML 250 ML ONE (16:25)
[2022-05-20] MEDS: ENOXAPARIN SOD INJ 40 MG/0.4 ML SYR SC SCH (16:35)
[2022-05-21] VITALS (9 sets, daily range): BP systolic 137–164; BP diastolic 69–87
[2022-05-21 06:30] LABS: BASOPHILS % 0.7 % (0.0-1.0); EOSINOPHILS # (AUTO) 0.2 (0.0-0.4); EOSINOPHILS % 2.7 % (0.0-6.0); HEMATOCRIT 35.7 % (34.2-44.1); HEMOGLOBIN 10.5 g/dL (12.0-16.0); LYMPHOCYTES # (AUTO) 1.5 (1.0-3.2); LYMPHOCYTES % 25.2 % (18.0-39.1); MEAN CORPUSCULAR HEMOGLOBIN 30.1 pg (28-32); MEAN CORPUSCULAR HGB CONC 29.4 g/dL (31-35); MEAN CORPUSCULAR VOLUME 102.3 fL (81-99); MONOCYTES # (AUTO) 0.4 (0.2-0.8); MONOCYTES % 7.4 % (4.4-11.3); NEUTROPHILS # (AUTO) 3.8 (2.1-6.9); NEUTROPHILS % 63.8 % (38.7-80.0); PLATELET COUNT 374 x10e3/uL (140-360); RED BLOOD COUNT 3.49 x10e6/uL (3.6-5.1)
[2022-05-21 06:40] LABS: INR 1.13; PROTHROMBIN TIME 14.7 seconds (11.9-14.5)
[2022-05-21 06:54] LABS: ALBUMIN 2.7 g/dL (3.5-5.0); ALBUMIN/GLOBULIN RATIO 0.6 (0.8-2.0); ANION GAP 17.4 mmol/L (8-16); CALCIUM 8.7 mg/dL (8.4-10.2); CREATININE, SERUM 0.51 mg/dL (0.57-1.11); POTASSIUM 3.4 mmol/L (3.5-5.1)
[2022-05-21] MEDS: INSULIN REGULAR, HUMAN 100 UNIT/1 ML SQ SCH ×4 (07:30→19:27)
[2022-05-21] MEDS: POTASSIUM CHLORIDE 20MEQ/100ML 100 ML IV SCH ×2 (08:42→11:01)
[2022-05-21] MEDS: THIAMINE HCL 100 MG TAB PO SCH (09:00)
[2022-05-21] MEDS: LOSARTAN POTASSIUM 25 MG TAB PO SCH (09:00)
[2022-05-21] MEDS: AMLODIPINE BESYLATE 10 MG TAB PO SCH (09:00)
[2022-05-21] MEDS: MULTIVITAMINS/MINERALS TAB PO SCH (09:00)
[2022-05-21] MEDS: HYDROMORPHONE 1MG/1ML INJ IV PRN ×2 (09:38→20:32)
[2022-05-21] MEDS: ENOXAPARIN SOD INJ 40 MG/0.4 ML SYR SC SCH (16:07)
[2022-05-21] MEDS ORDERED: DEXTROSE 5%/0.45% SOD CHL 1,000 ML IV ONE (19:00)
[2022-05-21 23:42] LABS: % IRON SATURATION 13 % (15-50); IRON 34 ug/dL (50-170); TOTAL IRON BINDING CAPACITY 265 ug/dL (261-478); TRANSFERRIN 189 mg/dL (180-382)
[2022-05-22] VITALS (9 sets, daily range): BP systolic 129–154; BP diastolic 69–89
[2022-05-22 05:48] LABS: BASOPHILS % 0.6 % (0.0-1.0); EOSINOPHILS # (AUTO) 0.2 (0.0-0.4); EOSINOPHILS % 2.7 % (0.0-6.0); HEMATOCRIT 35.5 % (34.2-44.1); LYMPHOCYTES # (AUTO) 1.4 (1.0-3.2); MONOCYTES # (AUTO) 0.4 (0.2-0.8); MONOCYTES % 6.6 % (4.4-11.3); NEUTROPHILS # (AUTO) 4.5 (2.1-6.9); NEUTROPHILS % 67.9 % (38.7-80.0); PLATELET COUNT 385 x10e3/uL (140-360); RED BLOOD COUNT 3.55 x10e6/uL (3.6-5.1); RED CELL DISTRIBUTION WIDTH 14.5 % (11.7-14.4)
[2022-05-22 06:37] LABS: ANION GAP 15.4 mmol/L (8-16); CALCIUM 8.7 mg/dL (8.4-10.2); CREATININE, SERUM 0.52 mg/dL (0.57-1.11); MAGNESIUM 1.6 MG/DL (1.3-2.1); PHOSPHORUS 2.1 MG/DL (2.3-4.7); POTASSIUM 3.4 mmol/L (3.5-5.1)
[2022-05-22] MEDS: INSULIN REGULAR, HUMAN 100 UNIT/1 ML SQ SCH ×4 (07:30→20:12)
[2022-05-22] MEDS: LOSARTAN POTASSIUM 25 MG TAB PO SCH (09:00)
[2022-05-22] MEDS: MULTIVITAMINS/MINERALS TAB PO SCH (09:00)
[2022-05-22] MEDS: THIAMINE HCL 100 MG TAB PO SCH (09:00)
[2022-05-22] MEDS: AMLODIPINE BESYLATE 10 MG TAB PO SCH (09:00)
[2022-05-22] MEDS: HYDROMORPHONE 1MG/1ML INJ IV PRN ×2 (09:42→23:09)
[2022-05-22] MEDS ORDERED: MIDAZOLAM HCL 2 MG/2 ML VIAL ONE (10:32)
[2022-05-22] MEDS ORDERED: SODIUM CHLORIDE 0.9% 250ML 250 ML ONE ×2 (10:33→10:36)
[2022-05-22] MEDS ORDERED: FENTANYL CITRATE/PF 100MCG/2 ML INJ ONE (10:33)
[2022-05-22] MEDS ORDERED: IOPAMIDOL 370 MG/ML 100 ML INFUS..BTL INJ ONE (10:36)
[2022-05-22] MEDS ORDERED: LIDOCAINE 1% 10 ML MULTIDOSE VIAL IJ ONE (10:36)
[2022-05-22] MEDS ORDERED: HYDROMORPHONE 1MG/1ML INJ IV PRN (15:00)
[2022-05-23] VITALS (8 sets, daily range): BP systolic 134–174; BP diastolic 66–81
[2022-05-23] MEDS: DEXTROSE 5%/0.45% SOD CHL 1,000 ML IV SCH ×2 (01:22→21:12)
[2022-05-23 06:25] LABS: BASOPHILS % 0.5 % (0.0-1.0); EOSINOPHILS # (AUTO) 0.2 (0.0-0.4); HEMATOCRIT 32.6 % (34.2-44.1); HEMOGLOBIN 10.6 g/dL (12.0-16.0); LYMPHOCYTES % 15.6 % (18.0-39.1); MEAN CORPUSCULAR HEMOGLOBIN 30.4 pg (28-32); MEAN CORPUSCULAR HGB CONC 32.5 g/dL (31-35); MEAN CORPUSCULAR VOLUME 93.4 fL (81-99); MONOCYTES # (AUTO) 0.4 (0.2-0.8); MONOCYTES % 6.6 % (4.4-11.3); NEUTROPHILS # (AUTO) 4.9 (2.1-6.9); NEUTROPHILS % 74.1 % (38.7-80.0); PLATELET COUNT 317 x10e3/uL (140-360); RED BLOOD COUNT 3.49 x10e6/uL (3.6-5.1)
[2022-05-23 06:55] LABS: ANION GAP 13.3 mmol/L (8-16); CALCIUM 8.7 mg/dL (8.4-10.2); CREATININE, SERUM 0.48 mg/dL (0.57-1.11); MAGNESIUM 1.5 MG/DL (1.3-2.1); PHOSPHORUS 2.2 MG/DL (2.3-4.7); POTASSIUM 3.3 mmol/L (3.5-5.1)
[2022-05-23] MEDS ORDERED: MAGNESIUM SULFATE 2GM/50ML 50 ML IV ONE ×2 (07:15)
[2022-05-23] MEDS ORDERED: POTASSIUM PHOSPHATE 15 MM in SODIUM CHLORIDE 0.9% 250ML 250 ML IV SCH (07:15)
[2022-05-23] MEDS: INSULIN REGULAR, HUMAN 100 UNIT/1 ML SQ SCH ×4 (07:30→21:14)
[2022-05-23] MEDS: HYDROMORPHONE 1MG/1ML INJ IV PRN ×3 (08:31→21:26)
[2022-05-23] MEDS: MULTIVITAMINS/MINERALS TAB PO SCH (09:00)
[2022-05-23] MEDS: LOSARTAN POTASSIUM 25 MG TAB PO SCH (09:00)
[2022-05-23] MEDS: AMLODIPINE BESYLATE 10 MG TAB PO SCH (09:00)
[2022-05-23] MEDS: THIAMINE HCL 100 MG TAB PO SCH (09:00)
[2022-05-23] MEDS ORDERED: LIDOCAINE 1% 10 ML MULTIDOSE VIAL IJ ONE (09:03)
[2022-05-23] MEDS ORDERED: ONDANSETRON HCL 4 MG ORAL DISINTEGRATING TAB PO PRN (10:45)
[2022-05-23 11:29] LABS: APPEARANCE,CSF CLEAR (CLEAR); COLOR,CSF COLORLESS (COLORLESS); TUBE NUMBER 3
[2022-05-23 11:30] LABS: WHITE BLOOD CELL,CSF 4 cells/uL (0-5)
[2022-05-23] MEDS ORDERED: POTASSIUM CHLORIDE 20MEQ/100ML 200 ML IV ONE (17:00)
[2022-05-24] VITALS: BP 135/77
[2022-05-24 04:00] VITALS: BP 155/84
[2022-05-24 06:52] LABS: BASOPHILS % 0.5 % (0.0-1.0); EOSINOPHILS # (AUTO) 0.2 (0.0-0.4); EOSINOPHILS % 3.7 % (0.0-6.0); HEMATOCRIT 37.1 % (34.2-44.1); HEMOGLOBIN 11.3 g/dL (12.0-16.0); LYMPHOCYTES % 17.7 % (18.0-39.1); MEAN CORPUSCULAR HEMOGLOBIN 30.1 pg (28-32); MEAN CORPUSCULAR HGB CONC 30.5 g/dL (31-35); MEAN CORPUSCULAR VOLUME 98.9 fL (81-99); MONOCYTES # (AUTO) 0.5 (0.2-0.8); MONOCYTES % 7.7 % (4.4-11.3); NEUTROPHILS # (AUTO) 4.1 (2.1-6.9); NEUTROPHILS % 70.1 % (38.7-80.0); PLATELET COUNT 328 x10e3/uL (140-360); RED BLOOD COUNT 3.75 x10e6/uL (3.6-5.1); RED CELL DISTRIBUTION WIDTH 14.7 % (11.7-14.4)
[2022-05-24] MEDS ORDERED: ONDANSETRON HCL INJ 2MG/ML 2ML 2 MG/ML VIAL IV PRN (07:00)
[2022-05-24] MEDS: HYDROMORPHONE 1MG/1ML INJ IV PRN (07:04)
[2022-05-24 07:14] LABS: ANION GAP 11.5 mmol/L (8-16); CALCIUM 8.3 mg/dL (8.4-10.2); CREATININE, SERUM 0.51 mg/dL (0.57-1.11); MAGNESIUM 1.8 MG/DL (1.3-2.1); PHOSPHORUS 1.9 MG/DL (2.3-4.7); POTASSIUM 3.5 mmol/L (3.5-5.1)
[2022-05-24 07:45] VITALS: BP 146/78
[2022-05-24 08:18] VITALS: BP 146/78
[2022-05-24] MEDS ORDERED: LOSARTAN POTASSIUM 25 MG TAB PO SCH (09:00)
[2022-05-24] MEDS: AMLODIPINE BESYLATE 10 MG TAB PO SCH (09:23)
[2022-05-24] MEDS: THIAMINE HCL 100 MG TAB PO SCH (09:23)
[2022-05-24] MEDS: MULTIVITAMINS/MINERALS TAB PO SCH (09:24)
[2022-05-24] MEDS ORDERED: NEURONTIN300 MG PO (09:26)
[2022-05-24] MEDS: INSULIN REGULAR, HUMAN 100 UNIT/1 ML SQ SCH ×3 (09:27→16:19)
[2022-05-24] MEDS ORDERED: POTASSIUM PHOSPHATE 15 MM in SODIUM CHLORIDE 0.9% 250ML 250 ML IV ONE (10:00)
[2022-05-24] MEDS ORDERED: KCL 20 MEQ PACKET/ ORAL SOLN PEG ONE (10:00)
[2022-05-24 11:18] VITALS: BP 121/65
[2022-05-24] MEDS ORDERED: HYDRALAZIN20 MG/1 ML IV (14:10)
[2022-05-24] MEDS ORDERED: HUMULIN R100 UNIT/2 SQ (14:10)
[2022-05-24] MEDS ORDERED: MELATONIN3 MG PO (14:10)
[2022-05-24] MEDS ORDERED: TYLENOL COLD-F240 ML PO (14:10)
[2022-05-24] MEDS ORDERED: COZAAR25 MG PEG (14:10)
[2022-05-24] MEDS ORDERED: ATROPINE SU1 MG/1 M1 IV (14:10)
[2022-05-24] MEDS ORDERED: Albuterol/Ipratropium Nebulize INH (14:10)
[2022-05-24] MEDS ORDERED: NORVASC10 MG PEG (14:10)
[2022-05-24] MEDS ORDERED: LOVENOX40 MG/0.4 SC (14:10)
[2022-05-24] MEDS ORDERED: B-1100 MG PEG (14:10)
[2022-05-24] MEDS ORDERED: COMPLETE M9 MG/15 ML PEG (14:10)
[2022-05-24] MEDS ORDERED: ALBUTEROL2.5 MG/3 M NEB (14:10)
[2022-05-24] MEDS ORDERED: PROTONIX40 MG/ML PEG (14:10)
[2022-05-24] MEDS ORDERED: IPRATROPIU0.2 MG/1 M NEB (14:10)
[2022-05-24] MEDS ORDERED: DEXTROSE 50%-WA50 M1 IV (14:10)
[2022-05-24] MEDS ORDERED: ONDANSETRON4 MG/2 M1 IV (14:10)
[2022-05-24] MEDS ORDERED: Hydromorphone 1MG/1ML Inj IV (14:10)
[2022-05-24 15:20] VITALS: BP 114/66
[2022-05-24] MEDS: PRAMIPEXOLE DIHYDROCHLORIDE 1 MG TAB PO PRN (16:06)
[2022-05-24] MEDS ORDERED: GABAPENTIN 300 MG CAP PO SCH (17:00)
[2022-05-25 16:11] LABS: IGG/ALB RATIO CSF 0.36 (0.00-0.25)
[2022-05-25 17:46] LABS: CSF/SERUM ALBUMIN INDEX 4 (0-8)
== END 2022-05-24 16:56 | DRG 871 ==
LOC: ER 16:50 → ERHOLD 18:48 → ICU 20:18 → MED/SURG3 05-20 14:10
PROVIDERS: ADMIT Internal Medicine; ATTEND Internal Medicine
PROC: 02H633Z Insertion of Infusion Device into Right Atrium, Percutaneous Approach (ICD-10-PCS; 2022-05-09)
PROC: B548ZZA Ultrasonography of Superior Vena Cava, Guidance (ICD-10-PCS; 2022-05-09)
PROC: 5A1945Z Respiratory Ventilation, 24-96 Consecutive Hours (ICD-10-PCS; principal; 2022-05-10)
PROC: 0BH17EZ Insertion of Endotracheal Airway into Trachea, Via Natural or Artificial Opening (ICD-10-PCS; 2022-05-10)
PROC: 0DD68ZX Extraction of Stomach, Via Natural or Artificial Opening Endoscopic, Diagnostic (ICD-10-PCS; 2022-05-18)
PROC: 0DH63UZ Insertion of Feeding Device into Stomach, Percutaneous Approach (ICD-10-PCS; 2022-05-18)
PROC: BD12YZZ Fluoroscopy of Stomach using Other Contrast (ICD-10-PCS; 2022-05-18)
PROC: 009U3ZX Drainage of Spinal Canal, Percutaneous Approach, Diagnostic (ICD-10-PCS; 2022-05-23)
PROC: B01BYZZ Fluoroscopy of Spinal Cord using Other Contrast (ICD-10-PCS; 2022-05-23)
DX: A41.9 Sepsis, unspecified organism (principal); G93.41 Metabolic encephalopathy; J69.0 Pneumonitis due to inhalation of food and vomit; R65.21 Severe sepsis with septic shock; J96.02 Acute respiratory failure with hypercapnia; N17.9 Acute kidney failure, unspecified; E44.0 Moderate protein-calorie malnutrition; J90 Pleural effusion, not elsewhere classified; R13.12 Dysphagia, oropharyngeal phase; I10 Essential (primary) hypertension; R68.0 Hypothermia, not associated with low environmental temperature; E11.40 Type 2 diabetes mellitus with diabetic neuropathy, unspecified; R53.81 Other malaise; R00.1 Bradycardia, unspecified; M47.812 Spondylosis without myelopathy or radiculopathy, cervical region; E78.5 Hyperlipidemia, unspecified; G25.81 Restless legs syndrome; K44.9 Diaphragmatic hernia without obstruction or gangrene; R62.7 Adult failure to thrive; K20.90 Esophagitis, unspecified without bleeding; H73.891 Other specified disorders of tympanic membrane, right ear; E83.42 Hypomagnesemia; E87.6 Hypokalemia; E87.5 Hyperkalemia; E83.39 Other disorders of phosphorus metabolism; M06.9 Rheumatoid arthritis, unspecified; E66.01 Morbid (severe) obesity due to excess calories; M48.02 Spinal stenosis, cervical region; L40.50 Arthropathic psoriasis, unspecified; D69.6 Thrombocytopenia, unspecified; Z85.830 Personal history of malignant neoplasm of bone; Z98.890 Other specified postprocedural states; Z98.84 Bariatric surgery status; Z79.84 Long term (current) use of oral hypoglycemic drugs; Z79.52 Long term (current) use of systemic steroids; Z79.891 Long term (current) use of opiate analgesic; Z79.899 Other long term (current) drug therapy; Z68.34 Body mass index [BMI] 34.0-34.9, adult
CPT/HCPCS: 31500; 36415; 36600; 43239; 43752; 49440; 51700; 62328; 70450; 71045; 71260; 72141; 74018; 74177; 74230; 74470; 78306; 80048; 80053; 80061; 81001; 82040; 82270; 82550; 82553; 82607; 82746; 82784; 82805; 82948; 83036; 83519; 83540; 83605; 83735; 83880; 83916; 84100; 84132; 84157; 84425; 84436; 84443; 84466; 84479; 84484; 85025; 85045; 85610; 85730; 86592; 86789; 87040; 87081; 87086; 87476; 88304; 88305; 88312; 88342; 89051; 93005; 93306; 94003; 94640; 94799; 96372; 99252; 99285; A9503; C1769; J0360; J0456; J0461; J0690; J0692; J1100; J1170; J1610; J1650; J1720; J1817; J1885; J1940; J2001; J2020; J2250; J2405; J2543; J2765; J3010; J3370; J3411; J3475; J3480; J7030; J7050; J7121; J7799; P9047; Q9967

== ENCOUNTER 2022-07-21 09:33 | Emergency (ER) | payer OTHER, MEDICARE ==
[~2022-07-21] VITALS: Ht 325.1 cm; Wt 99.3 kg
[~2022-07-21 09:33] MED LIST changes: +ALBUTEROL2.5 MG/3 M NEB; +ATROPINE SU1 MG/1 M1 IV; +Albuterol/Ipratropium Nebulize INH; +B-1100 MG PEG; +COMPLETE M9 MG/15 ML PEG; +COZAAR25 MG PEG; +DEXTROSE 50%-WA50 M1 IV; +HUMULIN R100 UNIT/2 SQ; +HYDRALAZIN20 MG/1 ML IV; +Hydromorphone 1MG/1ML Inj IV; +IPRATROPIU0.2 MG/1 M NEB; +LOVENOX40 MG/0.4 SC; +MELATONIN3 MG PO; +NEURONTIN300 MG PO; +NORVASC10 MG PEG; +ONDANSETRON4 MG/2 M1 IV; +PROTONIX40 MG/ML PEG; +TYLENOL COLD-F240 ML PO; -VECURONIUM BROMIDE FOR INJ 20 MG VIAL ONE; -WATER STERILE 10 ML VIAL ONE
[2022-07-21 09:38] VITALS: O2SAT 97
== END 2022-07-21 12:06 | disposition home or self-care (01) ==
LOC: ER 09:37
DX: Z46.6 Encounter for fitting and adjustment of urinary device (principal); I10 Essential (primary) hypertension; E11.9 Type 2 diabetes mellitus without complications; E78.5 Hyperlipidemia, unspecified; M06.9 Rheumatoid arthritis, unspecified; Z98.84 Bariatric surgery status; Z85.89 Personal history of malignant neoplasm of other organs and systems
CPT/HCPCS: 99282

== ENCOUNTER 2024-07-10 14:47 | Inpatient (IN) | payer OTHER, MEDICARE ==
[~2024-07-10] VITALS: Ht 165.1 cm; Wt 111.6 kg
[2024-07-10] VITALS (8 sets, daily range): BP systolic 81–133; BP diastolic 62–73; PULSE 73–89; RESP 13–20; TEMP 93.6–94.1; O2SAT 90–97
[~2024-07-10 14:47] MED LIST changes: +DIFLUCAN200 MG PO
[2024-07-10 15:53] LABS: BASOPHILS % 0.2 % (0.0-1.0); EOSINOPHILS # (AUTO) 0.1 (0.0-0.4); EOSINOPHILS % 1.4 % (0.0-6.0); HEMATOCRIT 35.5 % (34.2-44.1); HEMOGLOBIN 11.8 g/dL (12.0-16.0); MEAN CORPUSCULAR HEMOGLOBIN 32.6 pg (28-32); MEAN CORPUSCULAR HGB CONC 33.2 g/dL (31-35); MEAN CORPUSCULAR VOLUME 98.1 fL (81-99); MONOCYTES # (AUTO) 0.3 (0.2-0.8); MONOCYTES % 7.6 % (4.4-11.3); NEUTROPHILS # (AUTO) 2.9 (2.1-6.9); NEUTROPHILS % 67.3 % (38.7-80.0); PLATELET COUNT 55 x10e3/uL (140-360); RED BLOOD COUNT 3.62 x10e6/uL (3.6-5.1); RED CELL DISTRIBUTION WIDTH 18.7 % (11.7-14.4); WHITE BLOOD COUNT 4.34 x10e3/uL (4.8-10.8)
[2024-07-10 15:59] LABS: INR 0.87; PROTHROMBIN TIME 12.4 seconds (11.9-14.5)
[2024-07-10 16:00] LABS: PARTIAL THROMBOPLASTIN TIME 35.9 seconds (23.8-35.5)
[2024-07-10 16:02] LABS: BILIRUBIN,URINE NEGATIVE (NEGATIVE); CLARITY,URINE CLEAR (CLEAR); COLOR,URINE YELLOW (YELLOW); GLUCOSE, URINE >=1000 (NEGATIVE); KETONES,URINE NEGATIVE (NEGATIVE); LEUKOCYTE ESTERASE ,URINE NEGATIVE (NEGATIVE); NITRITE,URINE POSITIVE (NEGATIVE); PH,URINE 5.5 (5 - 7); PROTEIN,URINE DIPSTICK NEGATIVE (NEGATIVE); URINE UROBILINOGEN 0.2 mg/dL (0.2 - 1)
[2024-07-10 16:10] LABS: ALBUMIN 3.2 g/dL (3.5-5.0); ALBUMIN/GLOBULIN RATIO 0.6 (0.8-2.0); ANION GAP 14.4 mmol/L (8-16); BILIRUBIN,TOTAL 0.3 mg/dL (0.2-1.2); CALCIUM 9.2 mg/dL (8.4-10.2); CREATININE, SERUM 0.77 mg/dL (0.57-1.11); MAGNESIUM 2.4 MG/DL (1.3-2.1); POTASSIUM 4.4 mmol/L (3.5-5.1); TOTAL PROTEIN 8.3 g/dL (6.5-8.1)
[2024-07-10 16:11] LABS: BACTERIA,URINE MANY /HPF; EPITHELIAL CELLS,URINE RARE /LPF
[2024-07-10 16:16] LABS: TROPONIN I 0.012 ng/mL (0-0.300)
[2024-07-10 16:24] LABS: INFLUENZA A AG NEGATIVE (NEGATIVE); INFLUENZA B AG NEGATIVE (NEGATIVE)
[2024-07-10 16:25] LABS: CORONAVIRUS COVID-19 AG NEGATIVE (NEGATIVE)
[2024-07-10] MEDS: Vancomycin IV 1 GM in SODIUM CHLORIDE 0.9% 250ML 250 ML IV ONE (16:36)
[2024-07-10] MEDS: MEROPENEM 1 GM in SODIUM CHLORIDE 0.9% 100 ML IV ONE (16:36)
[2024-07-10] MEDS ORDERED: ONDANSETRON HCL INJ 2MG/ML 2ML 2 MG/ML VIAL IV PRN (16:45)
[2024-07-10] MEDS: SODIUM CHLORIDE 0.9% 1000ML 1,000 ML IV SCH (16:45)
[2024-07-10] MEDS ORDERED: ALBUTEROL SULF 0.083% NEB SOLN 3 ML NEB NEB PRN (17:00)
[2024-07-10] MEDS ORDERED: IOPAMIDOL 370 MG/ML 100 ML INFUS..BTL INJ ONE (17:00)
[2024-07-10] MEDS: ENOXAPARIN SOD INJ 40 MG/0.4 ML SYR SC SCH (18:04)
[2024-07-10] MEDS: MEROPENEM 1 GM in SODIUM CHLORIDE 0.9% 100 ML IV SCH (22:44)
[2024-07-10] MEDS: PRAMIPEXOLE DIHYDROCHLORIDE 1 MG TAB PO SCH (22:58)
[2024-07-10] MEDS: GABAPENTIN 300 MG CAP PO PRN (22:59)
[2024-07-10] MEDS: MELATONIN 3 MG TAB PO SCH (22:59)
[2024-07-11] VITALS (26 sets, daily range): BP systolic 80–144; BP diastolic 44–92; PULSE 58–93; RESP 13–21; TEMP 94.2–99.3; O2SAT 85–97
[2024-07-11] MEDS: VANCOMYCIN 1.5 GM/300 ML (PEG) 300 ML IV SCH (03:51)
[2024-07-11 07:34] LABS: BASOPHILS % 0.3 % (0.0-1.0); EOSINOPHILS % 1.3 % (0.0-6.0); HEMATOCRIT 30.4 % (34.2-44.1); HEMOGLOBIN 9.8 g/dL (12.0-16.0); LYMPHOCYTES # (AUTO) 0.9 (1.0-3.2); LYMPHOCYTES % 29.1 % (18.0-39.1); MEAN CORPUSCULAR HEMOGLOBIN 32.3 pg (28-32); MEAN CORPUSCULAR HGB CONC 32.2 g/dL (31-35); MEAN CORPUSCULAR VOLUME 100.3 fL (81-99); MONOCYTES # (AUTO) 0.3 (0.2-0.8); MONOCYTES % 8.4 % (4.4-11.3); NEUTROPHILS # (AUTO) 1.9 (2.1-6.9); NEUTROPHILS % 60.3 % (38.7-80.0); PLATELET COUNT 51 x10e3/uL (140-360); RED BLOOD COUNT 3.03 x10e6/uL (3.6-5.1); RED CELL DISTRIBUTION WIDTH 19.1 % (11.7-14.4)
[2024-07-11 07:53] LABS: ALBUMIN 2.5 g/dL (3.5-5.0); ALBUMIN/GLOBULIN RATIO 0.6 (0.8-2.0); BILIRUBIN,TOTAL 0.2 mg/dL (0.2-1.2); CALCIUM 8.4 mg/dL (8.4-10.2); CREATININE, SERUM 0.6 mg/dL (0.57-1.11); TOTAL PROTEIN 6.8 g/dL (6.5-8.1)
[2024-07-11 08:13] LABS: TROPONIN I 0.01 ng/mL (0-0.300)
[2024-07-11] MEDS: PANTOPRAZOLE SOD 40 MG TABEC PO SCH (08:44)
[2024-07-11] MEDS: ASPIRIN 81 MG CHEW TAB PO SCH (08:44)
[2024-07-11] MEDS: PRAMIPEXOLE DIHYDROCHLORIDE 1 MG TAB PO SCH (08:44)
[2024-07-11] MEDS: GABAPENTIN 300 MG CAP PO SCH (08:44)
[2024-07-11] MEDS ORDERED: OXYBUTYNIN CHLOR5 MG PO (15:25)
[2024-07-11 15:28] LABS: TROPONIN I 0.008 ng/mL (0-0.300)
[2024-07-11] MEDS: OXYBUTYNIN CHLORIDE 5 MG TAB PO SCH (21:00)
[2024-07-11] MEDS ORDERED: MELATONIN 3 MG TAB PO SCH (21:00)
[2024-07-11] MEDS ORDERED: PRAMIPEXOLE DIHYDROCHLORIDE 1 MG TAB PO SCH (21:00)
[2024-07-12] VITALS (17 sets, daily range): BP systolic 99–154; BP diastolic 58–86; PULSE 65–80; RESP 10–20; TEMP 97.3–97.5; O2SAT 93–100
[2024-07-12 06:29] LABS: BASOPHILS % 0.3 % (0.0-1.0); EOSINOPHILS # (AUTO) 0.1 (0.0-0.4); EOSINOPHILS % 1.8 % (0.0-6.0); HEMATOCRIT 31.8 % (34.2-44.1); HEMOGLOBIN 10.2 g/dL (12.0-16.0); MEAN CORPUSCULAR HEMOGLOBIN 32.1 pg (28-32); MEAN CORPUSCULAR HGB CONC 32.1 g/dL (31-35); MONOCYTES # (AUTO) 0.3 (0.2-0.8); MONOCYTES % 7.8 % (4.4-11.3); NEUTROPHILS # (AUTO) 2.5 (2.1-6.9); NEUTROPHILS % 62.3 % (38.7-80.0); PLATELET COUNT 65 x10e3/uL (140-360); RED BLOOD COUNT 3.18 x10e6/uL (3.6-5.1); RED CELL DISTRIBUTION WIDTH 18.7 % (11.7-14.4); WHITE BLOOD COUNT 3.96 x10e3/uL (4.8-10.8)
[2024-07-12 06:46] LABS: ALBUMIN 2.5 g/dL (3.5-5.0); ALBUMIN/GLOBULIN RATIO 0.6 (0.8-2.0); ANION GAP 12.9 mmol/L (8-16); BILIRUBIN,TOTAL 0.3 mg/dL (0.2-1.2); CALCIUM 8.6 mg/dL (8.4-10.2); CREATININE, SERUM 0.66 mg/dL (0.57-1.11); POTASSIUM 3.9 mmol/L (3.5-5.1); TOTAL PROTEIN 6.5 g/dL (6.5-8.1)
[2024-07-12] MEDS ORDERED: ACETAMINOPHEN 325 MG TAB PO PRN (09:30)
[2024-07-12] MEDS: METHOTREXATE SOD 2.5 MG TAB PO ONE (09:42)
[2024-07-13] VITALS (12 sets, daily range): BP systolic 147–170; BP diastolic 78–93; PULSE 74–85; RESP 18–20; TEMP 94.5–97.8; O2SAT 93–97
[2024-07-13 06:41] LABS: BASOPHILS % 0.6 % (0.0-1.0); EOSINOPHILS # (AUTO) 0.1 (0.0-0.4); EOSINOPHILS % 1.9 % (0.0-6.0); HEMOGLOBIN 11.5 g/dL (12.0-16.0); LYMPHOCYTES # (AUTO) 1.1 (1.0-3.2); LYMPHOCYTES % 19.9 % (18.0-39.1); MEAN CORPUSCULAR HEMOGLOBIN 32.6 pg (28-32); MEAN CORPUSCULAR HGB CONC 33.8 g/dL (31-35); MEAN CORPUSCULAR VOLUME 96.3 fL (81-99); MONOCYTES # (AUTO) 0.5 (0.2-0.8); MONOCYTES % 9.6 % (4.4-11.3); NEUTROPHILS # (AUTO) 3.5 (2.1-6.9); NEUTROPHILS % 66.3 % (38.7-80.0); PLATELET COUNT 92 x10e3/uL (140-360); RED BLOOD COUNT 3.53 x10e6/uL (3.6-5.1); RED CELL DISTRIBUTION WIDTH 18.3 % (11.7-14.4); RETICULOCYTE % 2.5 % (0.8-2.2); WHITE BLOOD COUNT 5.33 x10e3/uL (4.8-10.8)
[2024-07-13 07:14] LABS: ALBUMIN 2.9 g/dL (3.5-5.0); ALBUMIN/GLOBULIN RATIO 0.6 (0.8-2.0); ANION GAP 13.8 mmol/L (8-16); BILIRUBIN,TOTAL 0.5 mg/dL (0.2-1.2); CALCIUM 9.5 mg/dL (8.4-10.2); CREATININE, SERUM 0.67 mg/dL (0.57-1.11); MAGNESIUM 1.7 MG/DL (1.3-2.1); POTASSIUM 3.8 mmol/L (3.5-5.1); TOTAL PROTEIN 7.7 g/dL (6.5-8.1)
[2024-07-13 07:35] LABS: FERRITIN 194.86 ng/mL (4.63-204.00)
[2024-07-13 08:05] LABS: FOLATE 5.8 ng/mL (7.0-15.4)
[2024-07-13] MEDS: DOCUSATE SODIUM 100 MG CAP PO SCH (08:15)
[2024-07-13] MEDS: SENNOSIDES 8.6 MG TAB PO SCH (08:15)
[2024-07-13] MEDS: FOLIC ACID 1 MG TAB PO SCH (08:15)
[2024-07-13] MEDS: CEFTRIAXONE 2 GM in SODIUM CHLORIDE 0.9% 100 ML IV SCH (08:16)
[2024-07-13] MEDS: SODIUM CHLORIDE 0.9% 250ML 250 ML ONE (09:11)
[2024-07-13] MEDS ORDERED: BENICAR40 MG PO (09:40)
[2024-07-13] MEDS ORDERED: LOVASTATIN20 MG PO (09:41)
[2024-07-13] MEDS ORDERED: JARDIANCE25 MG PO (09:42)
[2024-07-13] MEDS ORDERED: LEVALBUTER1.25 MG/3 INH (09:45)
[2024-07-13] MEDS ORDERED: OCTAGAM (09:46)
[2024-07-13] MEDS ORDERED: NEURONTIN600 MG PO (09:46)
[2024-07-13] MEDS ORDERED: AMLODIPINE BESY10 MG PO (09:46)
[2024-07-13] MEDS ORDERED: VITAMIN D2 PO (09:48)
[2024-07-13] MEDS ORDERED: METHOTREXATE2.5 MG PO (09:53)
[2024-07-13] MEDS ORDERED: CYANOCOBALAMIN IM (09:53)
[2024-07-13] MEDS ORDERED: NITROFURANTOIN100 M1 PO (09:54)
[2024-07-13] MEDS ORDERED: ALLEGRA-D 24 H1 EACH PO (09:59)
[2024-07-13] MEDS ORDERED: IPRATROPIUM BRO30 ML INH (09:59)
[2024-07-13] MEDS: HYDRALAZINE HCL 20 MG/ML VIAL IV PRN (10:10)
[2024-07-13] MEDS ORDERED: FOLIC PO (10:16)
[2024-07-13] MEDS ORDERED: LEVALBUTEROL HCL SOLN NEBU 1.25 MG/3 ML NEB INH PRN ×2 (19:15→19:30)
[2024-07-14] VITALS (11 sets, daily range): BP systolic 123–157; BP diastolic 74–94; PULSE 79–93; RESP 17–21; TEMP 97.5–98.9; O2SAT 94–98
[2024-07-14 06:36] LABS: BASOPHILS % 0.3 % (0.0-1.0); EOSINOPHILS # (AUTO) 0.1 (0.0-0.4); EOSINOPHILS % 1.6 % (0.0-6.0); HEMATOCRIT 36.6 % (34.2-44.1); HEMOGLOBIN 12.2 g/dL (12.0-16.0); LYMPHOCYTES % 13.7 % (18.0-39.1); MEAN CORPUSCULAR HEMOGLOBIN 32.4 pg (28-32); MEAN CORPUSCULAR HGB CONC 33.3 g/dL (31-35); MEAN CORPUSCULAR VOLUME 97.1 fL (81-99); MONOCYTES # (AUTO) 0.5 (0.2-0.8); MONOCYTES % 7.6 % (4.4-11.3); NEUTROPHILS # (AUTO) 5.4 (2.1-6.9); NEUTROPHILS % 75.7 % (38.7-80.0); PLATELET COUNT 108 x10e3/uL (140-360); RED BLOOD COUNT 3.77 x10e6/uL (3.6-5.1); RED CELL DISTRIBUTION WIDTH 18.8 % (11.7-14.4); WHITE BLOOD COUNT 7.09 x10e3/uL (4.8-10.8)
[2024-07-14 07:09] LABS: ALBUMIN/GLOBULIN RATIO 0.6 (0.8-2.0); ANION GAP 16.8 mmol/L (8-16); BILIRUBIN,TOTAL 0.5 mg/dL (0.2-1.2); CALCIUM 9.5 mg/dL (8.4-10.2); CREATININE, SERUM 0.7 mg/dL (0.57-1.11); MAGNESIUM 1.7 MG/DL (1.3-2.1); POTASSIUM 3.8 mmol/L (3.5-5.1); TOTAL PROTEIN 7.8 g/dL (6.5-8.1)
[2024-07-14] MEDS: OLMESARTAN 20 MG TAB PO SCH (09:28)
[2024-07-14] MEDS: FOLIC ACID 1 MG TAB PO SCH (09:30)
[2024-07-14] MEDS: AMLODIPINE BESYLATE 10 MG TAB PO SCH (09:31)
[2024-07-14] MEDS: BISACODYL 10 MG SUPP PR PRN (14:10)
[2024-07-14 15:33] LABS: BILIRUBIN,DIRECT 0.2 mg/dL (0.0-0.5); BILIRUBIN,TOTAL 0.5 mg/dL (0.2-1.2)
[2024-07-15] VITALS (7 sets, daily range): BP systolic 111–152; BP diastolic 74–98; PULSE 77–84; RESP 17–19; TEMP 97.3–97.8; O2SAT 95–97
[2024-07-15 06:33] LABS: BASOPHILS % 0.3 % (0.0-1.0); EOSINOPHILS # (AUTO) 0.1 (0.0-0.4); EOSINOPHILS % 1.6 % (0.0-6.0); HEMATOCRIT 36.3 % (34.2-44.1); HEMOGLOBIN 12.3 g/dL (12.0-16.0); LYMPHOCYTES # (AUTO) 1.3 (1.0-3.2); LYMPHOCYTES % 19.4 % (18.0-39.1); MEAN CORPUSCULAR HGB CONC 33.9 g/dL (31-35); MEAN CORPUSCULAR VOLUME 97.3 fL (81-99); MONOCYTES # (AUTO) 0.6 (0.2-0.8); MONOCYTES % 8.4 % (4.4-11.3); NEUTROPHILS # (AUTO) 4.7 (2.1-6.9); NEUTROPHILS % 69.9 % (38.7-80.0); PLATELET COUNT 129 x10e3/uL (140-360); RED BLOOD COUNT 3.73 x10e6/uL (3.6-5.1); RED CELL DISTRIBUTION WIDTH 18.3 % (11.7-14.4); WHITE BLOOD COUNT 6.77 x10e3/uL (4.8-10.8)
[2024-07-15 06:48] LABS: HEPATITIS A ANTIBODY IGM (P) Negative; HEPATITIS B CORE AB TOTAL Positive (Negative)
[2024-07-15 06:49] LABS: HEPATITIS B CORE IGM (P) Negative; HEPATITIS B SURFACE AG (P) Negative
[2024-07-15 06:50] LABS: HEPATITIS C ANTIBODY Reactive
[2024-07-15 07:08] LABS: ALBUMIN/GLOBULIN RATIO 0.6 (0.8-2.0); ANION GAP 14.6 mmol/L (8-16); BILIRUBIN,TOTAL 0.4 mg/dL (0.2-1.2); CALCIUM 9.5 mg/dL (8.4-10.2); CREATININE, SERUM 0.66 mg/dL (0.57-1.11); POTASSIUM 3.6 mmol/L (3.5-5.1); TOTAL PROTEIN 7.8 g/dL (6.5-8.1)
[2024-07-15] MEDS: POLYETHYLENE GLYCOL 3350 17 GM PACK PO PRN (13:35)
[2024-07-15] MEDS ORDERED: FOLIC ACID0.8 MG PO (17:35)
[2024-07-15] MEDS ORDERED: ASPIRIN CHEW81 MG PO (17:35)
[2024-07-15] MEDS ORDERED: TRAZODONE HCL50 MG PO (17:55)
[2024-07-15] MEDS ORDERED: TRAZODONE HCL 50 MG TAB PO SCH (21:00)
[2024-07-17 16:54] LABS: ANTI-MITOCHONDRIAL AB SCREEN <20.0 Units (0.0-20.0)
[2024-07-18 08:10] LABS: HEPATITIS C VIRUS, RNA DIAGNOS HCV Not Detected
== END 2024-07-15 20:17 | disposition home health service (06) | DRG 698 ==
LOC: ER 15:26 → ERHOLD 16:45 → ICU 20:00 → MED/SURG3 07-12 17:30
PROVIDERS: ADMIT Internal Medicine; ATTEND Internal Medicine
DX: T83.518A Infection and inflammatory reaction due to other urinary catheter, initial encounter (principal); R53.2 Functional quadriplegia; G61.81 Chronic inflammatory demyelinating polyneuritis; D61.818 Other pancytopenia; Z68.41 Body mass index [BMI] 40.0-44.9, adult; Z16.24 Resistance to multiple antibiotics; N30.90 Cystitis, unspecified without hematuria; B96.89 Other specified bacterial agents as the cause of diseases classified elsewhere; R68.0 Hypothermia, not associated with low environmental temperature; R33.9 Retention of urine, unspecified; N31.9 Neuromuscular dysfunction of bladder, unspecified; I10 Essential (primary) hypertension; E66.9 Obesity, unspecified; E11.9 Type 2 diabetes mellitus without complications; Z79.84 Long term (current) use of oral hypoglycemic drugs; Z79.4 Long term (current) use of insulin; M06.9 Rheumatoid arthritis, unspecified; E78.5 Hyperlipidemia, unspecified; R16.0 Hepatomegaly, not elsewhere classified; R74.8 Abnormal levels of other serum enzymes; R74.01 Elevation of levels of liver transaminase levels; L40.50 Arthropathic psoriasis, unspecified; Z11.52 Encounter for screening for COVID-19; Z99.3 Dependence on wheelchair; Z85.830 Personal history of malignant neoplasm of bone; Z98.84 Bariatric surgery status; Z79.899 Other long term (current) drug therapy; Y84.6 Urinary catheterization as the cause of abnormal reaction of the patient, or of later complication, without mention of misadventure at the time of the procedure; Y92.009 Unspecified place in unspecified non-institutional (private) residence as the place of occurrence of the external cause
CPT/HCPCS: 36415; 70450; 71045; 74177; 76700; 80053; 80076; 81001; 82140; 82533; 82550; 82607; 82728; 82746; 83540; 83605; 83735; 84443; 84466; 84484; 85025; 85045; 85610; 85730; 86039; 86255; 86704; 87040; 87086; 87186; 87522; 93005; 94799; 99252; 99285; J0360; J0696; J1650; J2185; J2470; J7030; J7050; J8610; Q9967